=== PATIENT | female | born 1970 | race Caucasian/White ===

== ENCOUNTER 2019-01-12 15:40 | Inpatient (IN) ==
[2019-01-12 19:43] LABS: Basophils # 0.1 K/mcL (0.0-0.2); Basophils % 0.4 %; Eosinophils # 0.1 K/mcL (0.0-0.6); Eosinophils % 0.5 %; Hematocrit 36.8 % (35.3-44.9); Hemoglobin 11.4 g/dL (11.5-15.4); Lymphocytes # 1.4 K/mcL (0.6-4.6); Lymphocytes % 11.1 %; Mean Corpuscular Hemoglobin 27.1 pg (28.0-33.3); Mean Corpuscular Volume 87.4 fL (83.0-100.0); Mean Platelet Volume 10.6 fL (9.4-12.4); Monocytes # 1.1 K/mcL (0.0-1.3); Monocytes % 8.2 %; Neutrophils # 10.3 K/mcL (1.6-8.9); Platelet Count 308 K/mcL (140-400); Red Blood Count 4.21 M/mcL (3.82-4.97); Red Cell Distribution Width 14.2 % (11.5-14.5); Segmented Neutrophils % 78.8 %
[2019-01-12 20:02] LABS: BUN/Creatinine Ratio 25 (6-26); Blood Urea Nitrogen 24 mg/dL (6-20); Calcium 8.6 mg/dL (8.6-10.3); Carbon Dioxide 28 mEq/L (23-29); Chloride 96 mEq/L (98-107); Glucose 323 mg/dL (70-105); Osmolality,Calculated 293 (280-300); Potassium 4.3 mEq/L (3.5-5.1); Sodium 133 mEq/L (136-145); eGFR For African Americans > 60 (> 60); eGFR For Non-African Americans > 60 (> 60)
[2019-01-12] MEDS: Insulin LISPRO 300 UNITS/3 ML VIAL SQ SCH (21:37)
[2019-01-12] MEDS ORDERED: Naloxone 0.4 MG/ML INJ IVP PRN (22:10)
[2019-01-12] MEDS ORDERED: Ondansetron 4 MG/2 ML VIAL IVP PRN (22:10)
[2019-01-12] MEDS ORDERED: traMADol 50 MG TABLET PO PRN (22:10)
[2019-01-12] MEDS ORDERED: 0.9 % Sodium Chloride 1,000 ML IVC SCH (22:15)
[2019-01-12] MEDS ORDERED: Vancomycin (wt based) 1,000 MG VIAL IVPB SCH (23:00)
--- NOTE | 2019-01-12 23:02 | Internal Med History&Physical ---
Date of Encounter: 01/12/19 Time of Encounter: 19:50 Internal Medicine - H&P: HPI Chief complaint: Transfer from [facility]; DFU/osteomyelitis Admitted From: Hospital to Hospital Transfer Plans for Post Hospital Care: Home History of present illness: Ms. Salter is a 48 year old female who was transferred to [place] from [facility] inpatient service. She was hospitalized the last few days with diabetic foot ulcer and cellulitis. Because of lack of improvement and concern for possible osteomyelitis, she was transferred for surgical intervention. She did have a bone scan there suggesting osteomyelitis. Despite antibiotics, she continued to have fevers and was transferred here for further care. Upon my assessment of the patient, patient is in no distress, but she is febrile. She does complain of pain in her foot. She does have ulcers in both feet, but her left foot appears to be red, swollen, and infected. Her right foot ulcer is open but does not appear to be acutely infected. She denies any chest pains, shortness of breath, cough, vomiting, or diarrhea. She denies any puncture wounds to her feet. She is diabetic and has neuropathy in her feet. 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 Unfortunately, she has not been very compliant with her diabetes care and/or foot care. Regarding her past medical history, patient has a known history of cardiomyopathy with EF of 20%. She does have an AICD/pacemaker in place. She follows with cardiology in [place], [place] and her PCP is in [place], [place]. Past Med Surg Social Fam HX - Past Medical History Attestation: Yes The following information was validated with the patient. Source: patient, old records reviewed, other (limited [facility] records) Medical history: cardiomyopathy, CHF, diabetes, GERD, hypertension Psychiatric history: anxiety - Past Surgical History Surgical History: appendectomy, , pacemaker/AICD Additional surgical history: Cardiac catherization. - Social History Smoking Status: Never smoker Smokeless Tobacco Status: No Alcohol use: none Drug use: none Current living situation: Home Activity Level: Independent ambulation Recent Out of Country Travel Within the Last 8 Weeks: No - Family History Mother Adopted: No Family Member Ethnicity: Non- Living Status: Hx Family Cardiac Disorders: Yes (htn) Hx Family Respiratory Disorders: No Hx Family Cancer: No Hx Family GI Disorders: No Hx Family Endocrine Disorder: No Hx Family Neuromuscular Disorders: No Hx Family Neurologic Disorders: No Hx Family HEENT Disorders: No Hx Family Autoimmune Disorders: No Internal Medicine - H&P: Meds Allopurinol [Zyloprim 100 MG] 100 mg PO BID 02/25/15 [History] Aspirin 325 mg PO DAILY 02/25/15 [History] Furosemide [Lasix] 75 mg PO BID 02/25/15 [History] Gabapentin [Neurontin] 400 mg PO TID 02/25/15 [History] Lisinopril [Zestril] 40 mg PO DAILY 02/25/15 [History] Metoprolol [Lopressor] 100 mg PO BID 02/25/15 [History] Buspirone HCl [Buspar] 10 mg PO TID 01/12/19 [History] Dulaglutide [Trulicity] 1.5 mg SQ Q1W 01/12/19 [History] Insulin Degludec [Tresiba] 140 units SQ HS 01/12/19 [History] Insulin LISPRO [HumaLOG] 10 units SQ TIDWM 01/12/19 [History] Omeprazole [PriLOSEC] 40 mg PO DAILY 01/12/19 [History] Ondansetron ODT [Zofran ODT] 4 mg SL Q6HR 01/12/19 [History] glipiZIDE [Glipizide] 10 mg PO DAILY 01/12/19 [History] Allergy/AdvReac Type Severity Reaction Status Date / Time codeine Allergy Hives Verified 12/16/15 16:11 - Constitutional Constitutional: fever(s), no chills, no night sweats - EENT Eyes: no blurry vision, no change in vision Ears: no ear pain, no tinnitus Nose, mouth and throat: no nasal congestion, no sinus pressure, no sore throat - Cardiovascular Cardiovascular ROS IM: no chest pain, no dyspnea, no dyspnea on exertion, no orthopnea, no paroxysmal nocturnal dyspnea - Respiratory Respiratory: no cough, no chest congestion, no excessive phlegm production, no change in phlegm color - Gastrointestinal Gastrointestinal: no abdominal pain, no diarrhea, no hematemesis, no hematochezia, no melena, no nausea, no vomiting - Genitourinary Genitourinary: no dysuria, no flank pain, no hematuria - Musculoskeletal Musculoskeletal ROS IM: arthralgias, no back pain - Integumentary Integumentary IM: non-healing lesions (both feet with ulcers), no rash, no jaundice - Neurological Neurological ROS: no dizziness, no focal weakness, no frequent falls, no h eadache(s) - Psychiatric Psychiatric: no anxiety, no depression - Endocrine Endocrine IM: polydipsia, polyuria, no cold intolerance, no heat intolerance, no polyphagia - Allergic/Immunologic Allergic/Immunologic: no GI upset with certain foods - Constitutional Vitals: Temp Pulse Resp BP Pulse Ox 101.6 F H 108 14 118/67 97 01/12/19 20:55 01/12/19 20:55 01/12/19 20:55 01/12/19 20:55 01/12/19 20:55 General appearance: Present: cooperative, mild distress, A&O X 3, pleasant, answers questions appropriately Exam: see below - Head Head exam: Present: atraumatic, normal inspection - Eye Eye exam: Present: EOMI, PERRL. Absent: scleral icterus Pupils: Present: normal accommodation - ENT ENT exam: Present: mucous membranes moist, normal exam, normal oropharynx - Neck Neck exam general surgery: Present: full ROM, supple, trachea midline. Absent: lymphadenopathy, tenderness, nuchal rigidity, thyromegaly - Respiratory Respiratory exam: Present: CTAB. Absent: chest wall tenderness, rales, respiratory distress, rhonchi, wheezes, tachypnea - Cardiovascular Cardiovascular exam: Present: distant heart sounds, RRR, +S1, +S2. Absent: diastolic murmur, systolic murmur - GI/Abdominal GI/Abdominal exam: Present: normal bowel sounds, soft. Absent: guarding, hepatomegaly, mass, rebound, splenomegaly, tenderness - Extremities Exam Extremities exam: Present: full ROM, normal capillary refill, warm, radial pulses palpable and symmetrical. Absent: calf tenderness, pedal edema Additional comments: both feet with ulcers; left foot ulcer infected with surrounding redness, edema, warmth, and pain - Back Exam Back exam: Absent: CVA tenderness (L), CVA tenderness (R) - Neurological Exam Neurological exam: Present: alert, CN II-XII intact, oriented X3, strengths equal and symetr throughout Additional comments: decreased sensation in both feet - Psychiatric Psychiatric exam: Present: normal affect, normal mood - Skin Skin exam: Present: dry, intact, warm Internal Med - H&P Results - Labs CBC & Chem 7: 01/12/19 19:28 01/12/19 19:28 Labs: Short CBC 01/12/19 Range/Units 19:28 WBC 13.0 H (4.3-11.1) K/mcL Hgb 11.4 L (11.5-15.4) g/dL Hct 36.8 (35.3-44.9) % Plt Count 308 (140-400) K/mcL Neutrophils # 10.3 H (1.6-8.9) K/mcL BMP 01/12/19 19:28 Sodium 133 L Potassium 4.3 Chloride 96 L Carbon Dioxide 28 BUN 24 H Creatinine 0.97 Glucose 323 H Calcium 8.6 - Assessment and Plan (1) SIRS (systemic inflammatory response syndrome) Current Visit: Yes Status: Acute Assessment and plan: 1. Blood cultures obtained. 2. Will trend lactate levels and monitor on hemodynamics. 3. Will cover with Vancomycin and Zosyn for suspected foot organisms. 4. Avoid IVF bolus at this time as I do not suspect she is septic and also that she has compromised cardiac function with EF 20%. If she develops sepsis, rising lactates, and compromised hemodynamics, then IVF bolus will be indicated. (2) Diabetic foot infection Current Visit: Yes Status: Acute Assessment and plan: 1. Will order CT foot; unable to perform MRI due to pacemaker. 2. Consult podiatry -- discussed with Dr. Hamilton. 3. Will also likely need ID consult as I suspect she has osteomyelitis. (3) IDDM (insulin dependent diabetes mellitus) Current Visit: Yes Status: Chronic Assessment and plan: 1. Hold oral home meds. 2. Will place on SSI and monitor glucose closely. 3. She will likely need basal insulin once no longer NPO. (4) Non-ischemic cardiomyopathy Current Visit: Yes Status: Chronic Assessment and plan: 1. Will monitor on telemetry. 2. ECHO ordered. (5) DVT prophylaxis Current Visit: Yes Status: Acute Assessment and plan: 1. Heparin SQ.
[2019-01-13] MEDS: Piperacillin/Tazobactam 3.375 GM in 0.9 % Sodium Chloride Mini Bag 100 ML IVPB SCH ×3 (00:04→18:47)
[2019-01-13] MEDS: Acetaminophen 325 MG TABLET PO PRN ×2 (00:05→21:13)
[2019-01-13 02:25] LABS: Basophils # 0.1 K/mcL (0.0-0.2); Basophils % 0.4 %; Eosinophils # 0.1 K/mcL (0.0-0.6); Eosinophils % 0.5 %; Hematocrit 33.3 % (35.3-44.9); Hemoglobin 10.3 g/dL (11.5-15.4); Immature Granulocytes % 1.1 % (0-4); Lymphocytes # 1.4 K/mcL (0.6-4.6); Lymphocytes % 10.9 %; Mean Corpuscular HGB Conc 30.9 g/dL (31.6-35.5); Mean Corpuscular Hemoglobin 27.1 pg (28.0-33.3); Mean Corpuscular Volume 87.6 fL (83.0-100.0); Mean Platelet Volume 10.5 fL (9.4-12.4); Monocytes # 1.3 K/mcL (0.0-1.3); Monocytes % 9.8 %; Neutrophils # 9.9 K/mcL (1.6-8.9); Platelet Count 288 K/mcL (140-400); Red Cell Distribution Width 14.1 % (11.5-14.5); Segmented Neutrophils % 77.3 %; White Blood Count 12.8 K/mcL (4.3-11.1)
[2019-01-13 02:35] LABS: INR 1.2; Prothrombin Time 13.2 Seconds (9.4-12.1)
[2019-01-13 02:38] LABS: Activated Partial Thrombo Time 27.7 Seconds (26.0-36.0)
[2019-01-13 02:51] LABS: Alanine Aminotransferase 8 Units/L (7-52); Albumin/Globulin Ratio 0.9 (1.1-2.2); Alkaline Phosphatase 55 Units/L (34-104); Aspartate Amino Transferase 7 Units/L (13-39); BUN/Creatinine Ratio 23 (6-26); Bilirubin,Total 0.5 mg/dL (0.3-1.0); Blood Urea Nitrogen 20 mg/dL (6-20); Carbon Dioxide 26 mEq/L (23-29); Chloride 97 mEq/L (98-107); Globulin 3.4 g/dL (2.4-3.5); Glucose 267 mg/dL (70-105); Magnesium 2.1 mg/dL (1.6-2.6); Osmolality,Calculated 284 (280-300); Potassium 3.7 mEq/L (3.5-5.1); Sodium 131 mEq/L (136-145); Total Protein 6.4 g/dL (6.4-8.9); eGFR For African Americans > 60 (> 60); eGFR For Non-African Americans > 60 (> 60)
[2019-01-13] MEDS: *HR* Heparin 5,000 UNIT/ML VIAL SQ SCH ×2 (06:03→12:35)
[2019-01-13] MEDS: Insulin LISPRO 300 UNITS/3 ML VIAL SQ SCH ×4 (09:00→21:14)
[2019-01-13] MEDS: Aspirin 325 MG TABLET PO SCH (10:00)
[2019-01-13] MEDS: Metoprolol 100 MG TABLET PO SCH ×2 (10:00→21:13)
[2019-01-13] MEDS: Gabapentin 400 MG CAPSULE PO SCH ×3 (10:00→21:13)
--- NOTE | 2019-01-13 10:02 | Podiatry Consult Note ---
Date of Encounter: 01/13/19 Time of Encounter: 10:00 Assessment and Plan (1) Diabetic foot infection Current visit: Yes Status: Acute Assssment: Mantilla stage II ulceration left foot Cellulitis Erythema and edema noted to periwound, left foot No lymphangitis noted, left foot CT left foot non suspicious for OM or abscess at this time Mantilla stage II ulceration right foot, appears stable WBC 12.8 Peak temp 100.1, no documented fever today 3/4 PT/DP bilaterally Plan: Bedside debridement completed. See below Wound cultures obtained- nursing to send to lab HGB A1C, ESR, CRP ordered Right foot xray ordered to evaluate ulceration/bone Continue IV ATB per ID recommendations- appreciate input No plan for surgical intervention at this time. Will continue to evaluate. Diabetic diet ordered Cleansed with 0.9 NS. Informed consent obtained timeout performed. Patient placed in recumbent position. Left foot and ankle prepped and draped usual manner. Under sterile technique and using sterile instrumentation surgical excisional wound debridement was carried out with #15 scalpel blade to remove all devitalized tissue of the plantar forefoot wound/1st submetatarsal right foot. Bleeding controlled with dressing. Debridement was carried down to the subcutaneous tissue. Covered with calcium alginate, 4x4 dry gauze, kerlix, and medipore tape. Wound measurements 1.5 x 1 x 1 cm Attention was then directed to left foot Cleansed with 0.9 NS. Informed consent obtained timeout performed. Patient placed in recumbent position. Left foot and ankle prepped and draped usual manner. Under sterile technique and using sterile instrumentation sharp surgical excisional wound debridement was carried out with #15 scalpel blade, pickup, and scissor to remove all devitalized tissue of the plantar forefoot wound/1st submetatarsal left foot. Wound cultures were obtained. Bleeding controlled with dressing. Debridement was carried down to the subcutaneous tissue. Painted all macerated tissue with betadine. Covered wound bed with calcium alginate, 4x4 dry gauze, kerlix, and medipore tape. 5 x 9.3 x 0.2 cm History of Present Illness Chief complaint: diabetic foot ulcers HPI: Ms. Salter is a 48 year old female who presented to the ER yesterday from [facility] for worsening diabetic foot ulcers. Patient is unknown to the podiatry clinic follows outpatient in [place] for care. PMH of cardiomyopathy, EF 20%, CHF, DM II, GERD, HTN, anxiety, appendectomy, and pacemaker/AICD. Denies any tobacco abuse, illicit drug abuse, or alcohol abuse. Briefly, patient reports calluses to bilateral first submetatarsal that began in October. Patient states she began to have pain about a week ago to left foot with increased erythema and edema. Reports going to [facility] where they have been giving her IV antibiotics. Patient states due to lack of healing she felt she needed transferred for more intensive care. Again Ms. Salter is a 48-year-old female who is consulted to podiatry for management of diabetic foot ulcers. CT upon admission was negative for any osteomyelitis or abscess of left lower extremity. Right foot appears stable, does not appear infectious, no imaging was completed. WBC 12.8. Reports fevers and chills. Denies any nausea, vomiting, or diarrhea. Denies any calf pain, chest pain, or shortness of breath. Discussed bedside debridement of bilateral foot ulcers with patient. Patient agreeable. Past Med Surg Social Fam HX - Past Medical History Medical history: cardiomyopathy, CHF, diabetes, GERD, hypertension Psychiatric history: anxiety - Past Surgical History Surgical History: appendectomy, , pacemaker/AICD Additional surgical history: Cardiac catherization. - Social History Smoking Status: Never smoker Smokeless Tobacco Status: No Alcohol use: none Drug use: none - Family History Mother Adopted: No Family Member Ethnicity: Non- Living Status: Hx Family Cardiac Disorders: Yes (htn) Hx Family Respiratory Disorders: No Hx Family Cancer: No Hx Family GI Disorders: No Hx Family Endocrine Disorder: No Hx Family Neuromuscular Disorders: No Hx Family Neurologic Disorders: No Hx Family HEENT Disorders: No Hx Family Autoimmune Disorders: No Medications and Allergies Allopurinol [Zyloprim 100 MG] 100 mg PO BID 02/25/15 [History] Aspirin 325 mg PO DAILY 02/25/15 [History] Furosemide [Lasix] 75 mg PO BID 02/25/15 [History] Gabapentin [Neurontin] 400 mg PO TID 02/25/15 [History] Lisinopril [Zestril] 40 mg PO DAILY 02/25/15 [History] Metoprolol [Lopressor] 100 mg PO BID 02/25/15 [History] Buspirone HCl [Buspar] 10 mg PO TID 01/12/19 [History] Dulaglutide [Trulicity] 1.5 mg SQ Q1W 01/12/19 [History] Insulin Degludec [Tresiba] 140 units SQ HS 01/12/19 [History] Insulin LISPRO [HumaLOG] 10 units SQ TIDWM 01/12/19 [History] Omeprazole [PriLOSEC] 40 mg PO DAILY 01/12/19 [History] Ondansetron ODT [Zofran ODT] 4 mg SL Q6HR 01/12/19 [History] glipiZIDE [Glipizide] 10 mg PO DAILY 01/12/19 [History] Allergy/AdvReac Type Severity Reaction Status Date / Time codeine Allergy Hives Verified 12/16/15 16:11 All Systems Reviewed: The remainder of the systems were reviewed and are negative - Constitutional Constitutional: fever(s) - Cardiovascular Cardiovascular: pedal edema, no chest pain, no dyspnea, no leg edema - Respiratory Respiratory: no cough, no dyspnea - Musculoskeletal Musculoskeletal: numbness, tingling Physical Exam - Constitutional Vitals: Temp Pulse Resp BP Pulse Ox 98.1 F 99 15 105/60 95 01/13/19 06:42 01/13/19 06:42 01/13/19 06:42 01/13/19 06:42 01/13/19 06:42 Results - Labs Result Diagrams: 01/13/19 02:06 01/13/19 02:07 Labs: Abnormal lab results WBC 12.8 K/mcL (4.3-11.1) H 01/13/19 02:06 RBC 3.80 M/mcL (3.82-4.97) L 01/13/19 02:06 Hgb 10.3 g/dL (11.5-15.4) L 01/13/19 02:06 Hct 33.3 % (35.3-44.9) L 01/13/19 02:06 MCH 27.1 pg (28.0-33.3) L 01/13/19 02:06 MCHC 30.9 g/dL (31.6-35.5) L 01/13/19 02:06 Neutrophils # 9.9 K/mcL (1.6-8.9) H 01/13/19 02:06 PT 13.2 Seconds (9.4-12.1) H 01/13/19 02:06 Sodium 131 mEq/L (136-145) L 01/13/19 02:07 Chloride 97 mEq/L (98-107) L 01/13/19 02:07 BUN 24 mg/dL (6-20) H 01/12/19 19:28 Glucose 267 mg/dL (70-105) H 01/13/19 02:07 POC Glucose 250 mg/dL (70-99) H 01/12/19 21:17 Calcium 8.0 mg/dL (8.6-10.3) L 01/13/19 02:07 AST 7 Units/L (13-39) L 01/13/19 02:07 Albumin 3.0 g/dL (3.5-5.7) L 01/13/19 02:07 Albumin/Globulin Ratio 0.9 (1.1-2.2) L 01/13/19 02:07 H & H 01/12/19 01/13/19 Range/Units 19:28 02:06 Hgb 11.4 L 10.3 L (11.5-15.4) g/dL Hct 36.8 33.3 L (35.3-44.9) % All other labs normal. - Diagnostic results Ankle/Foot CT: report reviewed Consult Discharge Plan - Plan Referrals: Lucy Araya, ALIRIO [Primary Care Provider] -
--- NOTE | 2019-01-13 11:39 | Infectious Disease Consult ---
Infectious Disease-Consult - Encounter Date/Time Date of Encounter: 01/13/19 Time of Encounter: 11:35 - Data of Consult Patient: new to practice Reason for consult: "diabetic foot ulcer, abx recommendation" Consult date: 01/13/19 Requesting Physician: Eagle Zhu Primary Care Provider: Lucy Araya CNP - HPI HPI: Ms. Salter is a 48 year old female with past medical history of cardiomyopathy status post pacer/AICD placement, diabetes, CHF, GERD, and hypertension. The patient was admitted to the hospital 01/12/19 for cellulitis and osteomyelitis. We are consulted 01/13/19 for further workup and treatment recommendations for diabetic foot ulcer and antibiotic recommendations. Briefly, the patient is a 48-year-old female with past medical history as stated above. The patient was originally admitted to [facility] on 01/09/19 after she presented to the emergency department with complaints of worsening diabetic foot ulcer and cellulitis. Upon arrival, she was febrile tachycardic. Her WBC was normal. Blood cultures were obtained and were no growth to date. Lactic acid and renal function were within normal limits. She had a wound culture that was obtained that was positive for Enterobacter cocci, K. pneumoniae, E. faecalis, and S. epi. She underwent a bone scan that revealed osteomyelitis of several of the tarsal bones. It is unclear what antibiotics she was on at [facility]. She failed to improve on IV antibiotics and she was transferred here for further evaluation and treatment. Since admission, the patient has had a Tmax 102.2. She has been tachycardic as well. Blood cultures drawn here on arrival are pending x 2 sets. Yesterday, her WBC went up to 13 with minimal improvement today. The patient has been evaluated by podiatry. Currently, the patient on vancomycin and Zosyn. We are asked to evaluate and make further recommendations. During my exam today, the patient states that she was recently off work for about 2 months from ulcers on her right foot for which she was being treated by her Ecologist Technician in [place]. She states she was on oral antibiotics and was doing wound care at home. She states she went back to work a couple of weeks before presentation and developed a blister over a previous callous that continued to worsen. She reports redness, pain, and swelling that had started to migrate up the leg. She denies drainage or foul odor. States she developed fevers and chills a couple of days ago. Denies chest pain, shortness of breath, or cough. Denies vomiting, diarrhea, or constipation. Reports some intermittent nausea, but states her appetite has been okay. Denies oral thrush or skin rashes. States her blood sugars run high a lot. The patient lives at home with her daughter. 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 She denies tobacco, alcohol, or illicit drug use. Denies chronic infectious diseases. Has a dog at home, but denies any bites or scratches. - ROS Review of Systems: All systems reviewed and no additional remarkable complaints except as stated. - Results CBC & Chem 7: 01/13/19 02:06 01/13/19 02:07 - Exam Vitals: Temp Pulse Resp BP Pulse Ox 98.1 F 110 15 149/87 97 01/13/19 10:07 01/13/19 10:07 01/13/19 10:07 01/13/19 10:07 01/13/19 10:07 Exam: Head: Atraumatic, normal inspection, normocephalic. Eye: EOMI, PERRLA, no scleral icterus noted. ENT: Mucous membranes moist. No odontogenic infection noted. Neck: Normal inspection, no meningismus. Respiratory: Clear to auscultation. No rales, respiratory distress, rhonchi, or wheezes noted. Cardiovascular: Regular rate and rhythm, S1 and S2 audible. No murmurs, rubs, or gallops. GI: Soft, obese, normal bowel sounds. Non-tender Extremities:No joint swelling, pedal edema, or tenderness noted. BLE dressings C/D/I. Back: Normal inspection. No vertebral tenderness noted. Neurological: Alert, oriented 3, no focal deficits. Psychiatric: normal affect, normal mood. Skin: Dry, intact, warm. Normal color. No rashes. Allopurinol [Zyloprim 100 MG] 100 mg PO BID 02/25/15 [History] Aspirin 325 mg PO DAILY 02/25/15 [History] Furosemide [Lasix] 80 mg PO BID 02/25/15 [History] Gabapentin [Neurontin] 400 mg PO TID 02/25/15 [History] Lisinopril [Zestril] 40 mg PO DAILY 02/25/15 [History] Metoprolol [Lopressor] 100 mg PO BID 02/25/15 [History] Buspirone HCl [Buspar] 10 mg PO TID 01/12/19 [History] Dulaglutide [Trulicity] 1.5 mg SUBTEN Q1W 01/12/19 [History] Insulin Degludec [Tresiba] 140 units SQ HS 01/12/19 [History] Insulin LISPRO [HumaLOG] 10 units SQ TIDWM 01/12/19 [History] Omeprazole [PriLOSEC] 40 mg PO DAILY 01/12/19 [History] Ondansetron ODT [Zofran ODT] 4 mg SL Q6HR PRN 01/12/19 [History] glipiZIDE [Glipizide] 10 mg PO DAILY 01/12/19 [History] Allergy/AdvReac Type Severity Reaction Status Date / Time codeine Allergy Hives Verified 01/13/19 21:14 - Assessment and Plan (1) Sepsis Current Visit: Yes Status: Acute The patient had three SIRS criteria. Likely secondary to left foot infection. WBC remains elevated. Tachycardia persists. Tmax 102.2 overnight. Blood cultures drawn 01/09/19 are NGTD x 2 sets. Repeat blood cultures drawn 01/12/19 are pending x 2 sets. Qualifiers: Sepsis type: sepsis due to unspecified organism Qualified Code(s): A41.9 - Sepsis, unspecified organism SNOMED Code(s): 10106568 (2) Osteomyelitis Current Visit: Yes Status: Acute Suspected. Location: Tarsal bones left foot. Causative organism: E. cloacae, K. pneumoniae, amp-sensitive E. faecalis, and S. epi Bone scan completed at [facility] showed possible OM of several tarsal bones. Podiatry consulted. XR, ESR, and CRP pending. Currently on Vanc and Zosyn. Qualifiers: Osteomyelitis type: acute hematogenous SNOMED Code(s): 81977440 (3) Diabetic foot infection Current Visit: Yes Status: Acute Location: Left foot. Causative organism: E. cloacae, K. pneumoniae, S. epi and E. faecalis. Likely secondary to chronic diabetic foot ulcer. Bone scan concerning for OM. Podiatry consulted. Further workup pending. Currently on Vanc and Zosyn. SNOMED Code(s): 418802112 (4) Non-ischemic cardiomyopathy Current Visit: Yes Status: Chronic Status post pacer/AICD. Follows with cardiology at OSH. SNOMED Code(s): 95027478 (5) Diabetes Current Visit: No Status: Chronic Check HgbA1C. Recommend aggressive glucose monitoring and control to promote wound healing and prevent re-infection. Management per the primary team. 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 Diabetes mellitus complication status: without complication Qualified Code(s): E11.9 - Type 2 diabetes mellitus without complications SNOMED Code(s): 32426882 (6) HLD (hyperlipidemia) Current Visit: No Status: Chronic SNOMED Code(s): 59875430 (7) HTN (hypertension) Current Visit: No Status: Chronic Qualifiers: Hypertension type: essential hypertension Qualified Code(s): I10 - Essent ial (primary) hypertension SNOMED Code(s): 35243792 (8) ICD (implantable cardioverter-defibrillator) in place Current Visit: No Status: Chronic SNOMED Code(s): 273988810 (9) Obesity Current Visit: No Status: Chronic Qualifiers: Obesity type: unspecified obesity type SNOMED Code(s): 274634122, 856535935 - Recommendations Recommendations: Await blood cultures to finalize. Check ESR, CRP. Await XR results. Diabetes management per the primary team. Wound care and activity and possible further surgical intervention per the Podiatry team. Continue Vancomycin IV. Pharmacy to dose. Goal trough ~15. Continue Zosyn 3.375 grams IV Q8H. Will plan to de-escalate antibiotics once we have further recommendations from the Podiatry team. Duration of treatment depends on the clinical picture. Monitor renal function and for drug toxicity and dose-adjust antibiotics. Past Med Surg Social Fam HX - Past Medical History Medical history: cardiomyopathy, CHF, diabetes, GERD, hypertension Psychiatric history: anxiety - Past Surgical History Surgical History: appendectomy, , pacemaker/AICD Additional surgical history: Cardiac catherization. - Social History Smoking Status: Never smoker Smokeless Tobacco Status: No Alcohol use: none Drug use: none - Family History Mother Adopted: No Family Member Ethnicity: Non- Living Status: Hx Family Cardiac Disorders: Yes (htn) Hx Family Respiratory Disorders: No Hx Family Cancer: No Hx Family GI Disorders: No Hx Family Endocrine Disorder: No Hx Family Neuromuscular Disorders: No Hx Family Neurologic Disorders: No Hx Family HEENT Disorders: No Hx Family Autoimmune Disorders: No Consult Discharge Plan - Plan Referrals: Lucy Araya CNP [Primary Care Provider] - - Attending Attestation I have personally performed a face to face evaluation on this patient. I have reviewed and agree with the care plan. History and Exam by me shows: This an addendum to original report dictated by Melissa Daniels CNP, please refer to Melissa's note for full details. Agree with above H&P, ROS and PE findings. Assessment and plan: 1. Sepsis 2. Osteomyelitis Left foot tarsal bone 3. DM2 poorly controlled 4. Morbid obesity 5. Diabetic foot ulcer Recommendations: Await blood cultures to finalize. Check ESR, CRP. Await XR results. Diabetes management per the primary team. Wound care and activity and possible further surgical intervention per the Podiatry team. Continue Vancomycin IV. Pharmacy to dose. Goal trough ~15. Continue Zosyn 3.375 grams IV Q8H. Will plan to de-escalate antibiotics once we have further recommendations from the Podiatry team. Duration of treatment depends on the clinical picture. Monitor renal function and for drug toxicity and dose-adjust antibiotics.
[2019-01-13 13:31] LABS: C-Reactive Protein 266 mg/L (Less than 10)
--- NOTE | 2019-01-13 14:10 | Electrocardiograph Report ---
[address] [address] Test Date: 2019-01-12 Pat Name: Rosita Salter Department: 115 Room: 3A Gender: F College Counselor: : 1970 Requested By: Earl Doty Order Number: [id number] Reading MD: Dank Russell Measurements Intervals Clever Rate: 113 P: 50 [place]: 188 QRS: -2 QRSD: 107 T: 78 QT: 340 QTc: 407 Interpretive Statements SINUS TACHYCARDIA Poor R wave progression Electronically Signed On 01-13-2019 14:08:23 EDT by Dank Russell
[2019-01-13 15:07] LABS: Estimated Average Glucose 338 mg/dl
[2019-01-13] MEDS ORDERED: Perflutren Lipid Microsphere 1.3 ML in 0.9 % Sodium Chloride 8.7 ML IVP ONE (15:09)
--- NOTE | 2019-01-13 19:13 | Internal Med Progress Note ---
Hospitalist Progress Note - Encounter Date of Encounter: 01/13/19 Time of Encounter: 09:00 - Subjective Interval History: Patient was seen this a.m. She had a temperature overnight yesterday. She denied fever or chills or night sweats at this morning. Her foot pain is under control. She had no nausea/vomiting or abdominal pain. - Exam Vitals: Temp Pulse Resp BP Pulse Ox 98.2 F 95 15 96/61 95 01/13/19 14:32 01/13/19 14:32 01/13/19 14:32 01/13/19 14:32 01/13/19 14:32 Exam: General: Patient is alert, oriented 3. Head: Atraumatic, normal inspection, normocephalic. Eye: EOMI, PERRLA, no scleral icterus noted. ENT: Mucous membranes moist. No odontogenic infection noted. Neck: Normal inspection, no meningismus. Respiratory: No respiratory distress, rhonchi, or wheezes noted. Cardiovascular: Regular rate and irregular rhythm, S1 and S2 audible. No . GI: Soft, nondistended, normal bowel sounds. Extremities: Bilateral lower extremity dressing, decreased sensation in the toes. Neurological: Alert, oriented 3, no focal deficits. Psychiatric: normal affect, normal mood. Skin: Dry, intact, warm. Normal color. No rashes. - Assessment and Plan (1) Non-ischemic cardiomyopathy Current Visit: Yes Status: Chronic (2) SIRS (systemic inflammatory response syndrome) Current Visit: Yes Status: Acute (3) Diabetic foot infection Current Visit: Yes Status: Acute (4) IDDM (insulin dependent diabetes mellitus) Current Visit: Yes Status: Chronic (5) DVT prophylaxis Current Visit: Yes Status: Acute - Summary of Assessment and Plan Summary of Assessment and Plan: Ms. Salter is a 48 year old female who was transferred to [place] from [facility] inpatient service. She was hospitalized the last few days with diabetic foot ulcer and cellulitis. Because of lack of improvement and concern for possible osteomyelitis, she was transferred for surgical intervention. She did have a bone scan there suggesting osteomyelitis. Despite antibiotics, she continued to have fevers and was transferred here for further care. Sepsis: - Meets 3/4 criteria - Bilateral lower extremity ulcers: - Pediatry consulted, had bedside I&D - ESR, CRP are pending. Foot x-ray with no evidence of ostial myelitis, first MTP joint soft tissue ulceration with soft tissue swelling suggesting cellulitis. CT food without signs of OM. Unable to do MRI due to AICD. - Blood cultures and wound cultures are pending. - Patient is hemodynamically stable, and afebrile today. - Infectious disease is consulted, continue Zosyn and vancomycin. - Continue gabapentin for neuropathy HFrEF S/P aicd: - EF 20/25%, mild MR, mild TR. - Patient looks euvolemic. -On Lasix 75 mg twice a day, continue to hold. - Continue beta blockers. Hyponatremia: - Likely secondary to dehydration and hyperglycemia. - Given her low EF, we continued to monitor without IV fluid administration. - Check BMP tomorrow IDDM with hyperglycemia: - Will not receive a 140 units at night, glipizide and 10 units of lispro 3 times a day. - Continue Accu-Cheks 3 times a day before meals, medium sliding scale insulin and Levemir 50 units at bedtime. DVT: Heparin SCC - Time Spent with Patient Total time spent is greater than 50% in coordination of care (as documented) at patient's floor/unit and/or counseling patient: Greater than 35 minutes Plan of Care Discussed with: patient Internal Medicine: Result - Labs CBC & Chem 7: 01/13/19 02:06 01/13/19 02:07 Labs: Short CBC 01/12/19 01/13/19 Range/Units 19:28 02:06 WBC 13.0 H 12.8 H (4.3-11.1) K/mcL Hgb 11.4 L 10.3 L (11.5-15.4) g/dL Hct 36.8 33.3 L (35.3-44.9) % Plt Count 308 288 (140-400) K/mcL Neutrophils # 10.3 H 9.9 H (1.6-8.9) K/mcL BMP 01/12/19 01/13/19 19:28 02:07 Sodium 133 L 131 L Potassium 4.3 3.7 Chloride 96 L 97 L Carbon Dioxide 28 26 BUN 24 H 20 Creatinine 0.97 0.87 Glucose 323 H 267 H Calcium 8.6 8.0 L Liver Function 01/13/19 Range/Units 02:07 Total Bilirubin 0.5 (0.3-1.0) mg/dL AST 7 L (13-39) Units/L ALT 8 (7-52) Units/L Alkaline Phosphatase 55 (34-104) Units/L Albumin 3.0 L (3.5-5.7) g/dL - ABG Interpretation ABG results: PT/INR, D-dimer PT 13.2 Seconds (9.4-12.1) H 01/13/19 02:06 - Impressions Impressions Echocardiogram 01/12/19 22:17 Impressions: LVEF 20-25%. Mildly dilated left ventricle. Indeterminate diastolic function. Atypical septal motion consistent with bundle branch block. Normal right ventricular structure and function. Mild mitral regurgitation. Mild tricuspid regurgitation. Mild-moderate pulmonary hypertension. A device lead was visualized in the right atrium and right ventricle. Left Ventricular Wall Motion: Rest Echo Findings The apex, apical inferior, mid inferior, basal inferior, apical anterior, mid anterior, basal anterior, apical septal, mid inferior septal, basal inferior septal, apical lateral, mid anterior lateral, basal anterior lateral, mid anterior septal, mid inferior lateral, basal anterior septal and basal inferior lateral vale were hypokinetic. Findings: Study Quality * Technically adequate exam. ECG Findings * Sinus rhythm with BBB. Left Ventricle * LVEF 20-25%. * Mildly dilated left ventricle. * Indeterminate diastolic function. * Atypical septal motion consistent with bundle branch block. Right Ventricle * Normal right ventricular structure and function. Left Atrium * Severely dilated left atrium. Right Atrium * Moderately dilated right atrium. Interatrial Septum * Interatrial septum not well evaluated. Aortic Valve * Aortic valve not well visualized. * No aortic regurgitation. * No aortic stenosis. Mitral Valve * Normal mitral valve structure. * Mild mitral regurgitation. * No mitral stenosis. Tricuspid Valve * Normal tricuspid valve structure. * Mild tricuspid regurgitation. * Mild-moderate pulmonary hypertension. Pulmonic Valve * Normal pulmonic valve structure and function. * Trace pulmonic regurgitation. Aorta * Normally sized aortic root. Pericardium * There is a trivial pericardial effusion present. IVC * The IVC is not well evaluated. Pulmonary Artery * Pulmonary artery not well visualized. Device lead * A device lead was visualized in the right atrium and right ventricle. Foot CT 01/12/19 22:17 IMPRESSION: 1. Shallow soft tissue ulceration plantar to the 1st MTP joint with underlying cellulitis. No definite well-defined drainable fluid collection. 2. No CT evidence of osteomyelitis or other acute osseous abnormality. D/ / Nazario Villegas MD / Nazario Villegas MD Interpreting Provider: Nazario Villegas MD Foot X-Ray 01/13/19 09:59 IMPRESSION: Soft tissue ulceration along the plantar aspect of the foot at the level of the 1st MTP joint with associated soft tissue swelling suggesting cellulitis. No soft tissue gas. No radiographic evidence of osteomyelitis. D/ / 01/13/2019 13:15:04 Tai Taylor MD / umang Interpreting Provider: Tai Taylor MD Consult Discharge Plan - Plan Referrals: Lucy Araya CNP [Primary Care Provider] -
[2019-01-14] MEDS: *HR* Heparin 5,000 UNIT/ML VIAL SQ SCH ×3 (00:07→17:31)
[2019-01-14] MEDS: Insulin DETEMIR 100 UNIT/ML X5UNITS SQ SCH ×2 (00:10→20:49)
[2019-01-14] MEDS: Piperacillin/Tazobactam 3.375 GM in 0.9 % Sodium Chloride Mini Bag 100 ML IVPB SCH ×4 (00:12→23:40)
[2019-01-14] MEDS: Insulin LISPRO 300 UNITS/3 ML VIAL SQ SCH ×4 (08:20→20:49)
[2019-01-14] MEDS: Gabapentin 400 MG CAPSULE PO SCH ×3 (08:33→19:50)
[2019-01-14] MEDS: Aspirin 325 MG TABLET PO SCH (08:33)
[2019-01-14] MEDS: Metoprolol 100 MG TABLET PO SCH ×2 (08:33→19:49)
[2019-01-14] MEDS: Gentamicin Oint 15 GM TUBE TP SCH (08:34)
[2019-01-14 09:05] LABS: Basophils # 0.1 K/mcL (0.0-0.2); Basophils % 0.5 %; Eosinophils # 0.3 K/mcL (0.0-0.6); Eosinophils % 2.8 %; Hematocrit 34.2 % (35.3-44.9); Hemoglobin 10.7 g/dL (11.5-15.4); Immature Granulocytes % 1.6 % (0-4); Lymphocytes % 18.7 %; Mean Corpuscular HGB Conc 31.3 g/dL (31.6-35.5); Mean Corpuscular Hemoglobin 27.8 pg (28.0-33.3); Mean Corpuscular Volume 88.8 fL (83.0-100.0); Mean Platelet Volume 10.1 fL (9.4-12.4); Monocytes # 0.9 K/mcL (0.0-1.3); Monocytes % 8.6 %; Neutrophils # 7.1 K/mcL (1.6-8.9); Platelet Count 331 K/mcL (140-400); Red Blood Count 3.85 M/mcL (3.82-4.97); Red Cell Distribution Width 14.2 % (11.5-14.5); Segmented Neutrophils % 67.8 %; White Blood Count 10.4 K/mcL (4.3-11.1)
[2019-01-14 09:16] LABS: BUN/Creatinine Ratio 19 (6-26); Blood Urea Nitrogen 14 mg/dL (6-20); Calcium 8.7 mg/dL (8.6-10.3); Carbon Dioxide 28 mEq/L (23-29); Chloride 101 mEq/L (98-107); Glucose 123 mg/dL (70-105); Osmolality,Calculated 284 (280-300); Potassium 3.9 mEq/L (3.5-5.1); Sodium 136 mEq/L (136-145); eGFR For African Americans > 60 (> 60); eGFR For Non-African Americans > 60 (> 60)
--- NOTE | 2019-01-14 14:59 | Internal Med Progress Note ---
Hospitalist Progress Note - Encounter Date of Encounter: 01/14/19 Time of Encounter: 11:00 - Subjective Interval History: No major events overnight. Patient denied fever, chills or night sweats. She has no nausea/vomiting or abdominal pain. She denied chest pain, palpitation or shortness of breath. - Exam Vitals: Temp Pulse Resp BP Pulse Ox 98.4 F 87 18 112/75 95 01/14/19 11:01 01/14/19 11:01 01/14/19 11:01 01/14/19 11:01 01/14/19 11:01 Exam: General: Patient is alert, oriented 3. Head: Atraumatic, normal inspection, normocephalic. Eye: EOMI, PERRLA, no scleral icterus noted. ENT: Mucous membranes moist. No odontogenic infection noted. Neck: Normal inspection, no meningismus. Respiratory: No respiratory distress, rhonchi, or wheezes noted. Cardiovascular: Regular rate and regular rhythm, S1 and S2 audible. No .GI: Soft, nondistended, normal bowel sounds. Extremities: Bilateral lower extremity dressing, decreased sensation in the toes. Neurological: Alert, oriented 3, no focal deficits. Psychiatric: normal affect, normal mood. Skin: Dry, intact, warm. Normal color. No rashes. - Assessment and Plan (1) Diabetic foot infection Current Visit: Yes Status: Acute (2) SIRS (systemic inflammatory response syndrome) Current Visit: Yes Status: Acute (3) Non-ischemic cardiomyopathy Current Visit: Yes Status: Chronic (4) IDDM (insulin dependent diabetes mellitus) Current Visit: Yes Status: Chronic (5) DVT prophylaxis Current Visit: Yes Status: Acute - Summary of Assessment and Plan Summary of Assessment and Plan: Ms. Salter is a 48 year old with a history of IDDM, neuropathy, NICM with EF of 20% who was transferred to [place] from [facility] inpatient service. She was hospitalized the last few days with diabetic foot ulcer and cellulitis. Because of lack of improvement and concern for possible osteomyelitis, she was transferred for surgical intervention. She did have a bone scan there suggesting osteomyelitis. Despite antibiotics, she continued to have fevers and was transferred here for further care. -Bilateral lower extremity ulcers: - s/p bedside I&D by podiatry. ESR is 90, CRP is 266. - Foot x-ray with no evidence of ostial myelitis, first MTP joint soft tissue ulceration with soft tissue swelling suggesting cellulitis. CT food without signs of OM. Unable to do MRI due to AICD. - Patient is afebrile, hemodynamically stable, leukocytosis resolved. - Left foot wound culture is growing GNR pending final results. - Infectious disease is consulted, continue Zosyn and renally dosed vancomycin day 2. - Continue gabapentin for neuropathy Sepsis: - Meets 3/4 criteria at presentation. - management as above. HFrEF S/P AICD: - EF 20/25%, mild MR, mild TR. - On Lasix 75 mg twice a day, continue to hold. Clinically euvolemic - Continue beta blockers. Hyponatremia: - Likely secondary to dehydration and hyperglycemia. - Given her low EF, we continued to monitor without IV fluid administration. - Check BMP tomorrow IDDM with hyperglycemia: - Will not receive a 140 units at night, glipizide and 10 units of lispro 3 times a day. - Continue Accu-Cheks 3 times a day before meals, medium sliding scale insulin and Levemir 50 units at bedtime. DVT: Heparin SCC BMAT +4. Disposition: continue inpatient. I reviewed independently all laboratory workup, pertinent images including x- rays and CT scans. I also reviewed independently and EKGs and my findings are in the body of my assessment and plan. I ordered the laboratory workup and images myself. I discussed finding with patient's, their families, RN's and consultants involved in the care of the patient. - Time Spent with Patient Total time spent is greater than 50% in coordination of care (as documented) at patient's floor/unit and/or counseling patient: Greater than 35 minutes Plan of Care Discussed with: patient Internal Medicine: Result - Labs CBC & Chem 7: 01/14/19 08:45 01/14/19 08:45 Labs: Short CBC 01/14/19 Range/Units 08:45 WBC 10.4 (4.3-11.1) K/mcL Hgb 10.7 L (11.5-15.4) g/dL Hct 34.2 L (35.3-44.9) % Plt Count 331 (140-400) K/mcL Neutrophils # 7.1 (1.6-8.9) K/mcL BMP 01/14/19 08:45 Sodium 136 Potassium 3.9 Chloride 101 Carbon Dioxide 28 BUN 14 Creatinine 0.73 Glucose 123 H Calcium 8.7 - ABG Interpretation ABG results: PT/INR, D-dimer PT 13.2 Seconds (9.4-12.1) H 01/13/19 02:06 - Impressions Impressions Echocardiogram 01/12/19 22:17 Impressions: LVEF 20-25%. Mildly dilated left ventricle. Indeterminate diastolic function. Atypical septal motion consistent with bundle branch block. Normal right ventricular structure and function. Mild mitral regurgitation. Mild tricuspid regurgitation. Mild-moderate pulmonary hypertension. A device lead was visualized in the right atrium and right ventricle. Left Ventricular Wall Motion: Rest Echo Findings The apex, apical inferior, mid inferior, basal inferior, apical anterior, mid anterior, basal anterior, apical septal, mid inferior septal, basal inferior septal, apical lateral, mid anterior lateral, basal anterior lateral, mid anterior septal, mid inferior lateral, basal anterior septal and basal inferior lateral vale were hypokinetic. Findings: Study Quality * Technically adequate exam. ECG Findings * Sinus rhythm with BBB. Left Ventricle * LVEF 20-25%. * Mildly dilated left ventricle. * Indeterminate diastolic function. * Atypical septal motion consistent with bundle branch block. Right Ventricle * Normal right ventricular structure and function. Left Atrium * Severely dilated left atrium. Right Atrium * Moderately dilated right atrium. Interatrial Septum * Interatrial septum not well evaluated. Aortic Valve * Aortic valve not well visualized. * No aortic regurgitation. * No aortic stenosis. Mitral Valve * Normal mitral valve structure. * Mild mitral regurgitation. * No mitral stenosis. Tricuspid Valve * Normal tricuspid valve structure. * Mild tricuspid regurgitation. * Mild-moderate pulmonary hypertension. Pulmonic Valve * Normal pulmonic valve structure and function. * Trace pulmonic regurgitation. Aorta * Normally sized aortic root. Pericardium * There is a trivial pericardial effusion present. IVC * The IVC is not well evaluated. Pulmonary Artery * Pulmonary artery not well visualized. Device lead * A device lead was visualized in the right atrium and right ventricle. Foot X-Ray 01/13/19 09:59 IMPRESSION: Soft tissue ulceration along the plantar aspect of the foot at the level of the 1st MTP joint with associated soft tissue swelling suggesting cellulitis. No soft tissue gas. No radiographic evidence of osteomyelitis. D/ / 01/13/2019 13:15:04 Tai Taylor MD / umang Interpreting Provider: Tai Taylor MD Consult Discharge Plan - Plan Referrals: Lucy Araya CNP [Primary Care Provider] -
[2019-01-14] MEDS: Acetaminophen 325 MG TABLET PO PRN (19:49)
[2019-01-14] MEDS: Famotidine 20 MG TABLET PO SCH (19:50)
[2019-01-15] MEDS: *HR* Heparin 5,000 UNIT/ML VIAL SQ SCH ×2 (05:23→16:46)
[2019-01-15 06:22] LABS: Hematocrit 31.6 % (35.3-44.9); Mean Corpuscular HGB Conc 31.6 g/dL (31.6-35.5); Mean Corpuscular Hemoglobin 27.3 pg (28.0-33.3); Mean Corpuscular Volume 86.3 fL (83.0-100.0); Mean Platelet Volume 10.1 fL (9.4-12.4); Platelet Count 340 K/mcL (140-400); Red Blood Count 3.66 M/mcL (3.82-4.97); Red Cell Distribution Width 14.2 % (11.5-14.5); White Blood Count 9.9 K/mcL (4.3-11.1)
[2019-01-15 06:42] LABS: BUN/Creatinine Ratio 24 (6-26); Blood Urea Nitrogen 17 mg/dL (6-20); Calcium 8.6 mg/dL (8.6-10.3); Carbon Dioxide 25 mEq/L (23-29); Chloride 102 mEq/L (98-107); Glucose 214 mg/dL (70-105); Osmolality,Calculated 286 (280-300); Potassium 3.9 mEq/L (3.5-5.1); Sodium 134 mEq/L (136-145); eGFR For African Americans > 60 (> 60); eGFR For Non-African Americans > 60 (> 60)
[2019-01-15] MEDS: Aspirin 325 MG TABLET PO SCH (08:49)
[2019-01-15] MEDS: Piperacillin/Tazobactam 3.375 GM in 0.9 % Sodium Chloride Mini Bag 100 ML IVPB SCH ×3 (08:49→23:55)
[2019-01-15] MEDS: Metoprolol 100 MG TABLET PO SCH ×2 (08:49→19:43)
[2019-01-15] MEDS: Insulin LISPRO 300 UNITS/3 ML VIAL SQ SCH ×5 (08:50→19:47)
[2019-01-15] MEDS: Gentamicin Oint 15 GM TUBE TP SCH (08:51)
[2019-01-15] MEDS: Gabapentin 400 MG CAPSULE PO SCH ×3 (08:51→19:43)
--- NOTE | 2019-01-15 15:27 | Internal Med Progress Note ---
Hospitalist Progress Note - Encounter Date of Encounter: 01/15/19 Time of Encounter: 10:00 - Subjective Interval History: No major events overnight. Patient was seen this a.m. He denied fever, chills or night sweats. He has no nausea, vomiting or abdominal pain. Patient denied chest pain, shortness of breath or palpitation. - Exam Vitals: Temp Pulse Resp BP Pulse Ox 98.6 F 102 15 119/69 94 01/15/19 07:01/15/19 07:01/15/19 07:01/15/19 07:01/15/19 08:45 Exam: General: Patient is alert, oriented 3. Head: Atraumatic, normal inspection, normocephalic. Eye: EOMI, PERRLA, no scleral icterus noted. ENT: Mucous membranes moist. No odontogenic infection noted. Neck: Normal inspection, no meningismus. Respiratory: No respiratory distress, rhonchi, or wheezes noted. Cardiovascular: Regular rate and regular rhythm, S1 and S2 audible. No .GI: Soft, nondistended, normal bowel sounds. Extremities: Bilateral lower extremity dressing, decreased sensation in the toes. Neurological: Alert, oriented 3, no focal deficits. Psychiatric: normal affect, normal mood. Skin: Dry, intact, warm. Normal color. No rashes. - Assessment and Plan (1) Diabetic foot infection Current Visit: Yes Status: Acute (2) SIRS (systemic inflammatory response syndrome) Current Visit: Yes Status: Acute (3) Non-ischemic cardiomyopathy Current Visit: Yes Status: Chronic (4) IDDM (insulin dependent diabetes mellitus) Current Visit: Yes Status: Acute (5) DVT prophylaxis Current Visit: Yes Status: Acute - Summary of Assessment and Plan Summary of Assessment and Plan: Ms. Salter is a 48 year old with a history of IDDM, neuropathy, NICM with EF of 20% who was transferred to [place] from [facility] inpatient service. She was hospitalized the last few days with diabetic foot ulcer and c ellulitis. Because of lack of improvement and concern for possible osteomyelitis, she was transferred for surgical intervention. She did have a bone scan there suggesting osteomyelitis. Despite antibiotics, she continued to have fevers and was transferred here for further care. -Bilateral lower extremity ulcers: - s/p bedside I&D by podiatry. ESR is 90, CRP is 266. - Foot x-ray with no evidence of OM, first MTP joint soft tissue ulceration with soft tissue swelling suggesting cellulitis. CT fooT without signs of OM. Unable to do MRI due to AICD. - Patient is afebrile, hemodynamically stable, leukocytosis resolved. - Left foot wound culture is growing GNR pending final results. - Infectious disease is consulted, continue Zosyn and renally dosed vancomycin day 3. - Continue gabapentin for neuropathy IDDM with hyperglycemia: not controlled - used to receive long acting 140 units at night, glipizide and 10 units of lispro 3 times a day. - Continue Accu-Cheks 3 times a day before meals, medium sliding scale insulin and Levemir 50 units at bedtime. Will add 6 units of Lispro TIDAC. Hyponatremia: not controlled - Likely secondary to dehydration and hyperglycemia. - Given her low EF, we continued to monitor without IV fluid administration. - Order BMP tomorrow Sepsis: - Meets 3/4 criteria at presentation. - management as above. HFrEF S/P AICD: - EF 20/25%, mild MR, mild TR. - On Lasix 75 mg twice a day, continue to hold. Clinically euvolemic - Continue beta blockers. DVT: Heparin SCC BMAT +3. Disposition: continue inpatient. I reviewed independently all laboratory workup, pertinent images including x- rays and CT scans. I also reviewed independently and EKGs and my findings are in the body of my assessment and plan. I ordered the laboratory workup and images myself. I discussed finding with patient's, their families, RN's and consultants involved in the care of the patient. - Time Spent with Patient Total time spent is greater than 50% in coordination of care (as documented) at patient's floor/unit and/or counseling patient: Greater than 35 minutes Plan of Care Discussed with: patient Internal Medicine: Result - Labs CBC & Chem 7: 01/15/19 06:05 01/15/19 06:05 Labs: Short CBC 01/15/19 Range/Units 06:05 WBC 9.9 (4.3-11.1) K/mcL Hgb 10.0 L (11.5-15.4) g/dL Hct 31.6 L (35.3-44.9) % Plt Count 340 (140-400) K/mcL BMP 01/15/19 06:05 Sodium 134 L Potassium 3.9 Chloride 102 Carbon Dioxide 25 BUN 17 Creatinine 0.72 Glucose 214 H Calcium 8.6 - ABG Interpretation ABG results: PT/INR, D-dimer PT 13.2 Seconds (9.4-12.1) H 01/13/19 02:06 Consult Discharge Plan - Plan Referrals: Lucy Araya, ALIRIO [Primary Care Provider] -
[2019-01-15] MEDS: Famotidine 20 MG TABLET PO SCH (19:43)
[2019-01-15] MEDS: Insulin DETEMIR 100 UNIT/ML X5UNITS SQ SCH (19:47)
[2019-01-16] MEDS: *HR* Heparin 5,000 UNIT/ML VIAL SQ SCH ×2 (05:27→17:32)
[2019-01-16 06:22] LABS: Hematocrit 31.4 % (35.3-44.9); Hemoglobin 9.7 g/dL (11.5-15.4); Mean Corpuscular HGB Conc 30.9 g/dL (31.6-35.5); Mean Corpuscular Hemoglobin 27.2 pg (28.0-33.3); Platelet Count 337 K/mcL (140-400); Red Blood Count 3.57 M/mcL (3.82-4.97); White Blood Count 8.9 K/mcL (4.3-11.1)
[2019-01-16 06:49] LABS: BUN/Creatinine Ratio 24 (6-26); Blood Urea Nitrogen 19 mg/dL (6-20); Calcium 8.7 mg/dL (8.6-10.3); Carbon Dioxide 25 mEq/L (23-29); Chloride 101 mEq/L (98-107); Glucose 254 mg/dL (70-105); Osmolality,Calculated 291 (280-300); Potassium 3.9 mEq/L (3.5-5.1); Sodium 135 mEq/L (136-145); eGFR For African Americans > 60 (> 60); eGFR For Non-African Americans > 60 (> 60)
[2019-01-16] MEDS: Metoprolol 100 MG TABLET PO SCH ×2 (09:58→20:25)
[2019-01-16] MEDS: Aspirin 325 MG TABLET PO SCH (09:59)
[2019-01-16] MEDS: Piperacillin/Tazobactam 3.375 GM in 0.9 % Sodium Chloride Mini Bag 100 ML IVPB SCH ×3 (09:59→23:56)
[2019-01-16] MEDS: Gabapentin 400 MG CAPSULE PO SCH ×3 (09:59→20:25)
[2019-01-16] MEDS: Insulin LISPRO 300 UNITS/3 ML VIAL SQ SCH ×7 (10:00→20:25)
[2019-01-16] MEDS ORDERED: *HR* LORazepam 2 MG/ML VIAL IVP ONE (12:04)
--- NOTE | 2019-01-16 13:08 | Internal Med Progress Note ---
Hospitalist Progress Note - Encounter Date of Encounter: 01/16/19 Time of Encounter: 10:00 - Subjective Interval History: No major events overnight. Patient was seen this a.m. He denied fever, chills or night sweats. sHe has no nausea, vomiting or abdominal pain. Patient denied chest pain, shortness of breath or palpitation. She did have good night since she started having diarrhea yesterday. She had 5 bowel movements overnight and she described as watery, nonbloody. - Exam Vitals: Temp Pulse Resp BP Pulse Ox 98.0 F 96 16 134/86 96 01/16/19 10:59 01/16/19 10:59 01/16/19 10:59 01/16/19 10:59 01/16/19 10:59 Exam: General: Patient is alert, oriented 3. Head: Atraumatic, normal inspection, normocephalic. Eye: EOMI, PERRLA, no scleral icterus noted. ENT: Mucous membranes moist. No odontogenic infection noted. Neck: Normal inspection, no meningismus. Respiratory: No respiratory distress, rhonchi, or wheezes noted. Cardiovascular: Regular rate and regular rhythm, S1 and S2 audible. No .GI: Soft, nondistended, normal bowel sounds. Extremities: Bilateral lower extremity dressing, decreased sensation in the toes. Neurological: Alert, oriented 3, no focal deficits. Psychiatric: normal affect, normal mood. Skin: Dry, intact, warm. Normal color. No rashes. - Assessment and Plan (1) Diabetic foot infection Current Visit: Yes Status: Acute (2) SIRS (systemic inflammatory response syndrome) Current Visit: Yes Status: Resolved (3) Diarrhea Current Visit: Yes Status: Acute (4) Non-ischemic cardiomyopathy Current Visit: Yes Status: Chronic (5) IDDM (insulin dependent diabetes mellitus) Current Visit: Yes Status: Acute (6) DVT prophylaxis Current Visit: Yes Status: Acute - Summary of Assessment and Plan Summary of Assessment and Plan: Ms. Salter is a 48 year old with a history of IDDM, neuropathy, NICM with EF of 20% who was transferred to [place] from [facility] inpatient service. She was hospitalized the last few days with diabetic foot ulcer and cellulitis. Because of lack of improvement and concern for possible osteomyelitis, she was transferred for surgical intervention. She did have a bone scan there suggesting osteomyelitis. Despite antibiotics, she continued to have fevers and was transferred here for further care. -Bilateral lower extremity ulcers: - s/p bedside I&D by podiatry. ESR is 90, CRP is 266. - Foot x-ray with no evidence of OM, first MTP joint soft tissue ulceration with soft tissue swelling suggesting cellulitis. CT fooT without signs of OM. Unable to do MRI due to AICD. - Patient is afebrile, hemodynamically stable, leukocytosis resolved. - Left foot wound culture is growing Klebsiella and enterococcus faecalis. - Infectious disease is consulted, continue Zosyn and renally dosed vancomycin day 4. - Continue gabapentin for neuropathy - pain management as per podiatry service. Diarrhea: New event - Watery, non-bloody. No abdominal pain. - C.diff ordered. Anxiety: new event - Had a panic attack yesterday and seems anxious today. - was given 0.5 ativan, will resume her celexa. IDDM with hyperglycemia: not controlled - used to receive long acting 140 units at night, glipizide and 10 units of lispro 3 times a day. - Continue Accu-Cheks 3 times a day before meals, medium sliding scale insulin and 6 units of Lispro TIDAC, and increase her Levemir to 70 units at bedtime. Hyponatremia: resolved. - Order BMP tomorrow Sepsis: - Meets 3/4 criteria at presentation. - management as above. HFrEF S/P AICD: - EF 20/25%, mild MR, mild TR. - On Lasix 75 mg twice a day, continue to hold. Clinically euvolemic - Continue beta blockers. DVT: Heparin SCC BMAT +4. Disposition: continue inpatient. I reviewed independently all laboratory workup, pertinent images including x- rays and CT scans. I also reviewed independently and EKGs and my findings are in the body of my assessment and plan. I ordered the laboratory workup and images myself. I discussed finding with patient's, their families, RN's and consultants involved in the care of the patient. - Time Spent with Patient Total time spent is greater than 50% in coordination of care (as documented) at patient's floor/unit and/or counseling patient: Greater than 35 minutes Plan of Care Discussed with: patient Internal Medicine: Result - Labs CBC & Chem 7: 01/16/19 06:07 01/16/19 06:07 Labs: Short CBC 01/16/19 Range/Units 06:07 WBC 8.9 (4.3-11.1) K/mcL Hgb 9.7 L (11.5-15.4) g/dL Hct 31.4 L (35.3-44.9) % Plt Count 337 (140-400) K/mcL BMP 01/16/19 06:07 Sodium 135 L Potassium 3.9 Chloride 101 Carbon Dioxide 25 BUN 19 Creatinine 0.79 Glucose 254 H Calcium 8.7 - ABG Interpretation ABG results: PT/INR, D-dimer PT 13.2 Seconds (9.4-12.1) H 01/13/19 02:06 Consult Discharge Plan - Plan Referrals: Lucy Araya CNP [Primary Care Provider] -
--- NOTE | 2019-01-16 14:51 | Infectious Disease Progress No ---
ID Progress Note Date of Encounter: 01/16/19 Time of Encounter: 14:49 - Subjective Subjective: Patient seen and examined. No acute events noted overnight. Patient states overall she feels okay. States she feels a little more shortness of breath today and has a moist nonproductive cough. Denies chest pain. Denies nausea, vomiting, or constipation. States she started having diarrhea last night and has had 4 bowel movements so far today that are mucousy and watery. States she has some upper abdominal fullness and is concerned that maybe they may have stopped her water pill. States her appetite is okay. Denies oral thrush or skin rashes. Denies any urinary complaints. - Objective CBC & Chem 7: 01/18/19 06:37 01/18/19 06:37 - Exam Vitals: Temp Pulse Resp BP Pulse Ox 98.1 F 93 16 131/85 97 01/16/19 14:33 01/16/19 14:33 01/16/19 14:33 01/16/19 14:33 01/16/19 14:33 Exam: Head: Atraumatic, normal inspection, normocephalic. Eye: EOMI, PERRLA, no scleral icterus noted. ENT: Mucous membranes moist. No odontogenic infection noted. Neck: Normal inspection, no meningismus. Respiratory: Clear to auscultation. No rales, respiratory distress, rhonchi, or wheezes noted. Cardiovascular: Regular rate and rhythm, S1 and S2 audible. No murmurs, rubs, or gallops. GI: Soft, obese, normal bowel sounds. Non-tender Extremities:No joint swelling, pedal edema, or tenderness noted. BLE dressings C/D/I. Neurological: Alert, oriented 3, no focal deficits. Psychiatric: normal affect, normal mood. Skin: Dry, intact, warm. Normal color. No rashes. - Assessment and Plan (1) Sepsis Current Visit: Yes Status: Acute The patient had three SIRS criteria. Likely secondary to left foot infection. WBC normal. Tachycardia resolved. Afebrile. Blood cultures drawn 01/09/19 are negative x 2 sets. Repeat blood cultures drawn 01/12/19 are no growth today x 2 sets. Qualifiers: Sepsis type: sepsis due to unspecified organism Qualified Code(s): A41.9 - Sepsis, unspecified organism SNOMED Code(s): 61098103 (2) Osteomyelitis Current Visit: Yes Status: Suspected Suspected. Location: Tarsal bones left foot. Causative organism: E. cloacae, K. pneumoniae, amp-sensitive E. faecalis, and S. epi Repeat wound culture obtained here is positive for Klebsiella pneumoniae and Enterococcus faecalis (pansensitive). Bone scan completed at [facility] showed possible OM of several tarsal bones. X-ray of the left foot negative for osteomyelitis. ESR elevated at 90 with a CRP of 266. Podiatry consulted. Awaiting further recommendations from them. Currently on Vanc and Zosyn. Qualifiers: Osteomyelitis type: acute hematogenous Osteomyelitis location: foot Laterality: left Qualified Code(s): M86.072 - Acute hematogenous osteomyelitis, left ankle and foot SNOMED Code(s): 81430235 (3) Diabetic foot infection Current Visit: Yes Status: Acute Location: Left foot. Causative organism: E. cloacae, K. pneumoniae, S. epi and E. faecalis. Repeat wound culture obtained here is positive for Klebsiella pneumonia and Enterococcus faecalis. Likely secondary to chronic diabetic foot ulcer. Bone scan concerning for OM, but x-ray negative. However, ESR and CRP very elevated. Podiatry consulted. Currently on Vanc and Zosyn. SNOMED Code(s): 887693291 (4) Non-ischemic cardiomyopathy Current Visit: Yes Status: Chronic Status post pacer/AICD. Follows with cardiology at OSH. SNOMED Code(s): 09347326 (5) Diabetes Current Visit: No Status: Chronic Blood sugars remain elevated. Recommend aggressive glucose monitoring and control to promote wound healing and prevent re-infection. Management per the primary team. Qualifiers: Diabetes mellitus type: type 2 Diabetes mellitus fpc insulin use: unspecified [employer] insulin use status Diabetes mellitus complication status: without complication Qualified Code(s): E11.9 - Type 2 diabetes mellitus without complications SNOMED Code(s): 94347831 (6) HLD (hyperlipidemia) Current Visit: No Status: Chronic SNOMED Code(s): 77966863 (7) HTN (hypertension) Current Visit: No Status: Chronic Qualifiers: Hypertension type: essential hypertension Qualified Code(s): I10 - Essential (primary) hypertension SNOMED Code(s): 62716416 (8) ICD (implantable cardioverter-defibrillator) in place Current Visit: No Status: Chronic SNOMED Code(s): 930651404 (9) Obesity Current Visit: No Status: Chronic Qualifiers: Obesity type: unspecified obesity type SNOMED Code(s): 042460769, 020783646 (10) Diarrhea Current Visit: Yes Status: Acute Patient reports several loose, watery stools today. GI panel pending. Empiric C. diff precautions for now. Qualifiers: Diarrhea type: unspecified type Qualified Code(s): R19.7 - Diarrhea, unspecified SNOMED Code(s): 55396206 - Recommendations Recommendations: Await GI panel. Await blood cultures to finalize. Diabetes management per the primary team. Wound care and activity and possible further surgical intervention per the Podiatry team. Continue Vancomycin IV. Pharmacy to dose. Goal trough ~15. Continue Zosyn 3.375 grams IV Q8H. Will plan to de-escalate antibiotics once we have further recommendations from the Podiatry team. Duration of treatment depends on the clinical picture. Monitor renal function and for drug toxicity and dose-adjust antibiotics. C. diff precautions per hospital policy. Can discontinue if C. diff negative. Consult Discharge Plan - Plan Additional Instructions: Follow up in wound care center s/p d/c. LEFT FOOT: Do not change left foot dressing, leave in place until wound care appointment Do not get foot wet RIGHT FOOT: Wash with warm water and soap daily. Cover with calcium alginate, 4x4 dry gauze, and medipore tape Change dressing daily Referrals: Lucy Araya, ALIRIO [Primary Care Provider] - - Attending Attestation I have personally performed a face to face evaluation on this patient. I have reviewed and agree with the care plan. History and Exam by me shows: Assessment and plan: 1. Sepsis 2. Osteomyelitis Left foot tarsal bone 3. DM2 poorly controlled 4. Morbid obesity 5. Diabetic foot ulcer Recommendations: Await GI panel. Await blood cultures to finalize. Diabetes management per the primary team. Wound care and activity and possible further surgical intervention per the Podiatry team. Continue Vancomycin IV. Pharmacy to dose. Goal trough ~15. Continue Zosyn 3.375 grams IV Q8H. Will plan to de-escalate antibiotics once we have further recommendations from the Podiatry team. Duration of treatment depends on the clinical picture. Monitor renal function and for drug toxicity and dose-adjust antibiotics. C. diff precautions per hospital policy. Can discontinue if C. diff negative.
[2019-01-16] MEDS: Gentamicin Oint 15 GM TUBE TP SCH (16:26)
--- NOTE | 2019-01-16 20:10 | Podiatry Progress Note ---
Date of Encounter: 01/16/19 Time of Encounter: 14:39 - Assessment and Plan (1) Diabetic foot infection Current Visit: Yes Status: Acute Assssment: Left foot: Mantilla stage II ulceration left foot Cellulitis, improved from previous Phelgmon noted to right medial foot Erythema and edema noted to periwound, left foot, improved from previous No lymphangitis noted, left foot CT left foot non suspicious for OM or abscess at this time Right foot: Mantilla stage II ulceration right foot, appears stable No erythema, no edema, no cellulitis, no lymphangitis noted WBC 8.9, improved from previous, afebrile ESR 90, CRP 266, A1C 13.4 3/4 PT/DP bilaterally Wound cultures returned klebsiella and enterococcus Blood cultures and anaerobic cultures pending Plan: Continue IV ATB per ID recommendations- appreciate input Continue local wound care as ordered XR of left foot ordered to evaluate sesamoids Patient will most likely need surgical debridement, will discuss with surgeon Right foot: Cleansed with 0.9 NS, covered ulcer with calcium alginate, 4x4 dry gauze, kerlix, and medipore tape Left foot: Cleansed with 0.9 NS, painted all macerated tissue with betadine, covered with calcium alginate, 4x4 dry gauze, kerlix, and medipore tape Impression: XR/XR foot 3V RT IMPRESSION: Soft tissue ulceration along the plantar aspect of the foot at the level of the 1st MTP joint with associated soft tissue swelling suggesting cellulitis. No soft tissue gas. No radiographic evidence of osteomyelitis. D/ / 01/13/2019 13:15:04 Tai Taylor MD / umang XR/XR foot 3V LT IMPRESSION: Soft tissue ulcer along the medial and plantar surface of the forefoot. Soft tissue swelling compatible with cellulitis. No radiographic findings of acute osteomyelitis. D/ / Grayson Soni MD / Grayson Soni MD Interpreting Provider: Grayson Soni MD R #: [id number] CT/CT foot LT wo con IMPRESSION: 1. Shallow soft tissue ulceration plantar to the 1st MTP joint with underlying cellulitis. No definite well-defined drainable fluid collection. 2. No CT evidence of osteomyelitis or other acute osseous abnormality. D/ / Nazario Villegas MD / Nazario Villegas MD Interpreting Provider: Nazario Villegas MD (2) IDDM (insulin dependent diabetes mellitus) Current Visit: Yes Status: Acute Assessment: HGB A1C 13.4 Plan: recommend tight glycemic control- primary managing recommend diabetic education/nutritional education Subjective Principal diagnosis: Bilateral diabetic foot ulcers Interval history: Patient awake in bed. Tearful, reporting her anxiety has been out of control. Alert and oriented x 3. Denies any fevers, chills, nausea, vomiting, or diarrhea. Denies any calf pain, chest pain, or shortness of breath. Denies any acute overnight events. No other questions or concerns at this time Objective - Vital Signs Vital Signs: Vital Signs Temp Pulse Resp BP Pulse Ox 01/16/19 14:33 98.1 F 93 16 131/85 97 01/16/19 10:59 98.0 F 96 16 134/86 96 01/16/19 07:32 98.9 F 98 16 141/81 92 01/16/19 03:15 98.1 F 99 16 146/92 96 Intake and Output 01/16/19 01/16/19 01/16/19 07:59 15:59 23:59 Intake Total 600 / 1680 360 / 1680 720 / 1680 Balance 600 / 1680 360 / 1680 720 / 1680 Intake: IV Fluids 600 / 1200 600 / 1200 Zosyn 3.375 GM In 0.9 % Sodium 100 / 200 100 / 200 Chloride (Mini-Bag +) 100 ML @ 25 mls/hr IVPB Q8HR [facility] Rx#: [id number] Vancocin 1,750 MG In 0.9 % 500 / 1000 500 / 1000 Sodium Chloride 500 ML @ 333. 333 mls/hr IVPB Q12H [facility] Rx#: [id number] Oral 0 / 480 360 / 480 120 / 480 Other: Meal Lunch Dinner Percent of Meal Consumed 100% 75% Stool Size Moderate Stool Consistency loose liquid # Voids 1 1 # Bowel Movements 1 1 Weight 114.2 kg Blood Glucose* 220 282 246 Patient Weight 01/16/19 23:59 Weight 114.2 kg - Exam Exam: Constitiutional: Alert and oriented x 3. Well nourished. No acute distress noted Vascular: 3/4 DP/PT bilaterally, CFT <3 sec to all digits, warm to warm from tibia to toes bilaterally, no calf pain with squeeze BLE Neurologic: Absent sensation to touch, normal plantar response Dermatologic: Right mantilla grade II ulceration 1st submetatarsal, left mantilla grade II ulceration 1st submetatarsal with phlagmon to left medial aspect of foot, erythema and edema noted Musculoskeletal: 5/5 muscle strength and normal tone bilaterally. - Lab Result Diagrams: 01/16/19 06:07 01/16/19 06:07 Labs: Abnormal lab results WBC 12.8 K/mcL (4.3-11.1) H 01/13/19 02:06 RBC 3.57 M/mcL (3.82-4.97) L 01/16/19 06:07 Hgb 9.7 g/dL (11.5-15.4) L 01/16/19 06:07 Hct 31.4 % (35.3-44.9) L 01/16/19 06:07 MCH 27.2 pg (28.0-33.3) L 01/16/19 06:07 MCHC 30.9 g/dL (31.6-35.5) L 01/16/19 06:07 Neutrophils # 9.9 K/mcL (1.6-8.9) H 01/13/19 02:06 ESR 90 mm/hr (0-15) H 01/13/19 02:06 PT 13.2 Seconds (9.4-12.1) H 01/13/19 02:06 Sodium 135 mEq/L (136-145) L 01/16/19 06:07 Chloride 97 mEq/L (98-107) L 01/13/19 02:07 BUN 24 mg/dL (6-20) H 01/12/19 19:28 Glucose 254 mg/dL (70-105) H 01/16/19 06:07 POC Glucose 246 mg/dL (70-99) H 01/16/19 16:09 Hemoglobin A1c 13.4 % (-5.6) H 01/13/19 02:06 Calcium 8.0 mg/dL (8.6-10.3) L 01/13/19 02:07 AST 7 Units/L (13-39) L 01/13/19 02:07 C-Reactive Protein 266 mg/L (Less than 10) H 01/13/19 02:07 Albumin 3.0 g/dL (3.5-5.7) L 01/13/19 02:07 Albumin/Globulin Ratio 0.9 (1.1-2.2) L 01/13/19 02:07 Vancomycin Trough 12 mcg/mL (5-10) H 01/15/19 22:44 Microbiology, Last 48 Hours 01/13/19 10:00 Anaerobic Culture - Preliminary Left Foot Culture is incubating. 01/13/19 10:00 Wound Culture - Final Left Foot Klebsiella pneu.ssp pneumoniae Enterococcus faecalis Consult Discharge Plan - Plan Referrals: Lucy Araya CNP [Primary Care Provider] -
[2019-01-16] MEDS: Famotidine 20 MG TABLET PO SCH (20:25)
[2019-01-16] MEDS: Insulin DETEMIR 100 UNIT/ML X5UNITS SQ SCH (20:25)
[2019-01-17] MEDS: Ipratropium/Albuterol Neb 3 ML IH PRN ×2 (03:05→11:03)
[2019-01-17] MEDS: *HR* Heparin 5,000 UNIT/ML VIAL SQ SCH ×2 (05:29→17:47)
[2019-01-17] MEDS: Piperacillin/Tazobactam 3.375 GM in 0.9 % Sodium Chloride Mini Bag 100 ML IVPB SCH ×2 (08:18→16:08)
[2019-01-17] MEDS: Metoprolol 100 MG TABLET PO SCH ×2 (08:19→21:53)
[2019-01-17] MEDS: Aspirin 325 MG TABLET PO SCH (08:19)
[2019-01-17] MEDS: Acetaminophen 325 MG TABLET PO PRN (08:19)
[2019-01-17] MEDS: Gabapentin 400 MG CAPSULE PO SCH ×3 (08:19→21:53)
[2019-01-17] MEDS: Insulin LISPRO 300 UNITS/3 ML VIAL SQ SCH ×7 (08:39→21:54)
[2019-01-17] MEDS ORDERED: ALPRAZolam 0.5 MG TABLET PO PRN (13:02)
[2019-01-17] MEDS: Gentamicin Oint 15 GM TUBE TP SCH (15:21)
--- NOTE | 2019-01-17 15:34 | Podiatry Progress Note ---
Date of Encounter: 01/17/19 Time of Encounter: 13:53 - Assessment and Plan (1) Diabetic foot infection Current Visit: Yes Status: Acute Assssment: Left foot: Mantilla stage II ulceration left foot Cellulitis, improved from previous Phelgmon noted to right medial foot Erythema and edema noted to periwound, left foot, improved from previous No lymphangitis noted, left foot CT left foot non suspicious for OM or abscess at this time Right foot: Mantilla stage II ulceration right foot, appears stable No erythema, no edema, no cellulitis, no lymphangitis noted WBC 8.9 yesterday, no lab work today, afebrile ESR 90, CRP 266, A1C 13.4 3/4 PT/DP bilaterally Wound cultures returned klebsiella and enterococcus Blood cultures and anaerobic cultures pending Plan: Continue IV ATB per ID recommendations- appreciate input Continue local wound care as ordered OR tomorrow for surgical debridement NPO after breakfast Right foot: Cleansed with 0.9 NS, covered ulcer with calcium alginate, 4x4 dry gauze, kerlix, and medipore tape Left foot: Cleansed with 0.9 NS, painted all macerated tissue with betadine, covered with adaptic, 4x4 dry gauze, kerlix, and medipore tape Impression: XR/XR foot 3V RT IMPRESSION: Soft tissue ulceration along the plantar aspect of the foot at the level of the 1st MTP joint with associated soft tissue swelling suggesting cellulitis. No soft tissue gas. No radiographic evidence of osteomyelitis. D/ / 01/13/2019 13:15:04 Tai Taylor MD / umang XR/XR foot 3V LT IMPRESSION: Soft tissue ulcer along the medial and plantar surface of the forefoot. Soft tissue swelling compatible with cellulitis. No radiographic findings of acute osteomyelitis. D/ / Grayson Soni MD / Grayson Soni MD Interpreting Provider: Grayson Soni MD R #: [id number] CT/CT foot LT wo con IMPRESSION: 1. Shallow soft tissue ulceration plantar to the 1st MTP joint with underlying cellulitis. No definite well-defined drainable fluid collection. 2. No CT evidence of osteomyelitis or other acute osseous abnormality. D/ / Nazario Villegas MD / Nazario Villegas MD Interpreting Provider: Nazario Villegas MD (2) IDDM (insulin dependent diabetes mellitus) Current Visit: Yes Status: Acute Assessment: HGB A1C 13.4 Plan: recommend tight glycemic control- primary managing recommend diabetic education/nutritional education Subjective Principal diagnosis: Bilateral diabetic foot ulcers Interval history: Patient awake in bed. Reports multiple anxiety attacks, but at this time calm. Alert and oriented x 3. Denies any fevers, chills, nausea, vomiting, or diarrhea. Denies any calf pain, chest pain, or shortness of breath. Denies any acute overnight events. Discussed with patient need for surgery, verbalized understanding, agreeable. No other questions or concerns at this time Objective - Vital Signs Vital Signs: Vital Signs Temp Pulse Resp BP Pulse Ox 01/17/19 14:34 98.0 F 89 14 113/71 96 01/17/19 12:00 98.1 F 89 14 122/75 94 01/17/19 11:03 17 97 01/17/19 06:55 98.2 F 92 14 130/84 98 01/17/19 03:57 97.8 F 89 16 141/90 97 01/17/19 03:09 16 99 01/16/19 20:22 98.6 F 96 16 122/78 97 Intake and Output 01/16/19 01/17/19 01/17/19 23:59 07:59 15:59 Intake Total 820 / 1780 600 / 940 340 / 940 Output Total 0 / 0 Balance 820 / 1780 600 / 940 340 / 940 Intake: IV Fluids 700 / 1300 600 / 700 100 / 700 Zosyn 3.375 GM In 0.9 % Sodium 200 / 300 100 / 200 100 / 200 Chloride (Mini-Bag +) 100 ML @ 25 mls/hr IVPB Q8HR [facility] Rx#: [id number] Vancocin 1,750 MG In 0.9 % 500 / 1000 500 / 500 Sodium Chloride 500 ML @ 333. 333 mls/hr IVPB Q12H [facility] Rx#: [id number] Oral 120 / 480 240 / 240 Output: Urine 0 / 0 Other: Meal Dinner Breakfast Percent of Meal Consumed 75% 95% # Voids 0 0 # Bowel Movements 1 Weight 116.1 kg Blood Glucose* 280 265 Patient Weight 01/17/19 23:59 Weight 116.1 kg - Exam Exam: Constitiutional: Alert and oriented x 3. Well nourished. No acute distress noted Vascular: 3/4 DP/PT bilaterally, CFT <3 sec to all digits, warm to warm from tibia to toes bilaterally, no calf pain with squeeze BLE Neurologic: Absent sensation to touch, normal plantar response Dermatologic: Right mantilla grade II ulceration 1st submetatarsal, left mantilla grade II ulceration 1st submetatarsal with phlagmon to left medial aspect of foot, erythema and edema noted Musculoskeletal: 5/5 muscle strength and normal tone bilaterally. - Lab Result Diagrams: 01/16/19 06:07 01/16/19 06:07 Labs: Abnormal lab results WBC 12.8 K/mcL (4.3-11.1) H 01/13/19 02:06 RBC 3.57 M/mcL (3.82-4.97) L 01/16/19 06:07 Hgb 9.7 g/dL (11.5-15.4) L 01/16/19 06:07 Hct 31.4 % (35.3-44.9) L 01/16/19 06:07 MCH 27.2 pg (28.0-33.3) L 01/16/19 06:07 MCHC 30.9 g/dL (31.6-35.5) L 01/16/19 06:07 Neutrophils # 9.9 K/mcL (1.6-8.9) H 01/13/19 02:06 ESR 90 mm/hr (0-15) H 01/13/19 02:06 PT 13.2 Seconds (9.4-12.1) H 01/13/19 02:06 Sodium 135 mEq/L (136-145) L 01/16/19 06:07 Chloride 97 mEq/L (98-107) L 01/13/19 02:07 BUN 24 mg/dL (6-20) H 01/12/19 19:28 Glucose 254 mg/dL (70-105) H 01/16/19 06:07 POC Glucose 280 mg/dL (70-99) H 01/16/19 20:15 Hemoglobin A1c 13.4 % (-5.6) H 01/13/19 02:06 Calcium 8.0 mg/dL (8.6-10.3) L 01/13/19 02:07 AST 7 Units/L (13-39) L 01/13/19 02:07 C-Reactive Protein 266 mg/L (Less than 10) H 01/13/19 02:07 Albumin 3.0 g/dL (3.5-5.7) L 01/13/19 02:07 Albumin/Globulin Ratio 0.9 (1.1-2.2) L 01/13/19 02:07 Vancomycin Trough 15 mcg/mL (5-10) H 01/17/19 10:53 Microbiology, Last 48 Hours 01/13/19 10:00 Anaerobic Culture - Preliminary Left Foot Culture is incubating. 01/13/19 10:00 Wound Culture - Final Left Foot Klebsiella pneu.ssp pneumoniae Enterococcus faecalis Consult Discharge Plan - Plan Referrals: Lucy Araya CNP [Primary Care Provider] -
--- NOTE | 2019-01-17 16:32 | Internal Med Progress Note ---
Hospitalist Progress Note - Encounter Date of Encounter: 01/17/19 Time of Encounter: 10:00 - Subjective Interval History: No major events overnight. Patient was seen this a.m. He denied fever, chills or night sweats. sHe has no nausea, vomiting or abdominal pain. Patient denied chest pain, shortness of breath or palpitation. Her diarrhea resolved and her anxiety is under control. - Exam Vitals: Temp Pulse Resp BP Pulse Ox 98.0 F 89 14 113/71 96 01/17/19 14:34 01/17/19 14:34 01/17/19 14:34 01/17/19 14:34 01/17/19 14:34 Exam: General: Patient is alert, oriented 3. Head: Atraumatic, normal inspection, normocephalic. Eye: EOMI, PERRLA, no scleral icterus noted. ENT: Mucous membranes moist. No odontogenic infection noted. Neck: Normal inspection, no meningismus. Respiratory: No respiratory distress, rhonchi, or wheezes noted. Cardiovascular: Regular rate and regular rhythm, S1 and S2 audible. No .GI: Soft, nondistended, normal bowel sounds. Extremities: Bilateral lower extremity dressing, decreased sensation in the toes. Neurological: Alert, oriented 3, no focal deficits. Psychiatric: normal affect, normal mood. Skin: Dry, intact, warm. Normal color. No rashes. - Assessment and Plan (1) Diabetic foot infection Current Visit: Yes Status: Acute (2) SIRS (systemic inflammatory response syndrome) Current Visit: Yes Status: Resolved (3) Diarrhea Current Visit: Yes Status: Acute (4) Non-ischemic cardiomyopathy Current Visit: Yes Status: Chronic (5) IDDM (insulin dependent diabetes mellitus) Current Visit: Yes Status: Acute (6) DVT prophylaxis Current Visit: Yes Status: Acute - Summary of Assessment and Plan Summary of Assessment and Plan: Ms. Salter is a 48 year old with a history of IDDM, neuropathy, NICM with EF of 20% who was transferred to [place] from [facility] inpatient service. She was hospitalized the last few days with diabetic foot ulcer and cellulitis. Because of lack of improvement and concern for possible osteomyelitis, she was transferred for surgical intervention. She did have a bone scan there suggesting osteomyelitis. Despite antibiotics, she continued to have fevers and was transferred here for further care. -Bilateral lower extremity ulcers: - s/p bedside I&D by podiatry. ESR is 90, CRP is 266. - Foot x-ray with no evidence of OM, first MTP joint soft tissue ulceration with soft tissue swelling suggesting cellulitis. CT fooT without signs of OM. Unable to do MRI due to AICD. - Patient is afebrile, hemodynamically stable, leukocytosis resolved. - Left foot wound culture is growing Klebsiella and enterococcus faecalis. - Infectious disease is consulted, continue Zosyn and renally dosed vancomycin day 5. - Continue gabapentin for neuropathy - pain management as per podiatry service. - Spoke with epigastric, we be taken to OR on Diarrhea: resolved - Watery, non-bloody. No abdominal pain. - C.diff - Anxiety: new event - Had a panic attack yesterday and seems anxious today. - start on 0.5 ativan BID PRN for anxiety. will resume her celexa. IDDM with hyperglycemia: not controlled - used to receive long acting 140 units at night, glipizide and 10 units of lispro 3 times a day. - Continue Accu-Cheks 3 times a day before meals, medium sliding scale insulin. Increase her lispro to 10 units of TIDAC, and keep her Levemir to 70 units at bedtime. Hyponatremia: resolved. - Order BMP tomorrow Sepsis: - Meets 3/4 criteria at presentation. - management as above. HFrEF S/P AICD: - EF 20/25%, mild MR, mild TR. - On Lasix 75 mg twice a day, continue to hold. Clinically euvolemic - Continue beta blockers. DVT: Heparin SCC BMAT +4. Disposition: continue inpatient. I reviewed independently all laboratory workup, pertinent images including x- rays and CT scans. I also reviewed independently and EKGs and my findings are in the body of my assessment and plan. I ordered the laboratory workup and im ages myself. I discussed finding with patient's, their families, RN's and consultants involved in the care of the patient. - Time Spent with Patient Total time spent is greater than 50% in coordination of care (as documented) at patient's floor/unit and/or counseling patient: Plan of Care Discussed with: patient Internal Medicine: Result - Labs CBC & Chem 7: 01/16/19 06:07 01/16/19 06:07 - ABG Interpretation ABG results: PT/INR, D-dimer PT 13.2 Seconds (9.4-12.1) H 01/13/19 02:06 - Impressions Impressions Foot X-Ray 01/16/19 09:19 IMPRESSION: Soft tissue ulcer along the medial and plantar surface of the forefoot. Soft tissue swelling compatible with cellulitis. No radiographic findings of acute osteomyelitis. D/ / Grayson Soni MD / Grayson Soni MD Interpreting Provider: Grayson Soni MD Consult Discharge Plan - Plan Referrals: Lucy Araya CNP [Primary Care Provider] - (3) Diarrhea Qualifiers: Diarrhea type: unspecified type Qualified Code(s): R19.7 - Diarrhea, unspecified
[2019-01-17] MEDS: Famotidine 20 MG TABLET PO SCH (21:54)
[2019-01-17] MEDS: Insulin DETEMIR 100 UNIT/ML X5UNITS SQ SCH (21:54)
[2019-01-18] MEDS: Piperacillin/Tazobactam 3.375 GM in 0.9 % Sodium Chloride Mini Bag 100 ML IVPB SCH ×3 (00:39→15:52)
[2019-01-18] MEDS: *HR* Heparin 5,000 UNIT/ML VIAL SQ SCH ×2 (06:46→15:45)
[2019-01-18 07:08] LABS: Hematocrit 33.4 % (35.3-44.9); Hemoglobin 10.5 g/dL (11.5-15.4); Mean Corpuscular HGB Conc 31.4 g/dL (31.6-35.5); Mean Corpuscular Hemoglobin 27.3 pg (28.0-33.3); Mean Platelet Volume 9.8 fL (9.4-12.4); Platelet Count 374 K/mcL (140-400); Red Blood Count 3.84 M/mcL (3.82-4.97); Red Cell Distribution Width 14.3 % (11.5-14.5); White Blood Count 11.2 K/mcL (4.3-11.1)
[2019-01-18 07:28] LABS: BUN/Creatinine Ratio 22 (6-26); Blood Urea Nitrogen 17 mg/dL (6-20); Calcium 8.7 mg/dL (8.6-10.3); Carbon Dioxide 28 mEq/L (23-29); Chloride 102 mEq/L (98-107); Glucose 194 mg/dL (70-105); Osmolality,Calculated 295 (280-300); Potassium 3.7 mEq/L (3.5-5.1); Sodium 139 mEq/L (136-145); eGFR For African Americans > 60 (> 60); eGFR For Non-African Americans > 60 (> 60)
[2019-01-18] MEDS: Insulin LISPRO 300 UNITS/3 ML VIAL SQ SCH ×6 (08:53→17:31)
[2019-01-18] MEDS: Aspirin 325 MG TABLET PO SCH (08:54)
[2019-01-18] MEDS: Gentamicin Oint 15 GM TUBE TP SCH (08:55)
[2019-01-18] MEDS: Gabapentin 400 MG CAPSULE PO SCH ×2 (08:55→15:13)
[2019-01-18] MEDS: Metoprolol 100 MG TABLET PO SCH (08:55)
--- NOTE | 2019-01-18 15:24 | Infectious Disease Progress No ---
ID Progress Note Date of Encounter: 01/18/19 Time of Encounter: 15:22 - Subjective Subjective: Patient seen and examined. No acute events noted overnight. Patient states overall she feels okay. Denies chest pain, shortness of breath, or cough. Denies nausea, vomiting, or constipation. States diarrhea is better and she is still having 3-4 bowel movements per day. Denies abdominal pain or urinary complaints. States her appetite is okay, but she is currently NPO for surgery later today. Denies oral thrush or skin rashes. - Objective CBC & Chem 7: 01/18/19 06:37 01/18/19 06:37 - Exam Vitals: Temp Pulse Resp BP Pulse Ox 97.7 F 82 16 114/74 94 01/18/19 14:19 01/18/19 14:19 01/18/19 14:19 01/18/19 14:19 01/18/19 14:19 Exam: Head: Atraumatic, normal inspection, normocephalic. Eye: EOMI, PERRLA, no scleral icterus noted. ENT: Mucous membranes moist. No odontogenic infection noted. Neck: Normal inspection, no meningismus. Respiratory: Clear to auscultation. No rales, respiratory distress, rhonchi, or wheezes noted. Cardiovascular: Regular rate and rhythm, S1 and S2 audible. No murmurs, rubs, or gallops. GI: Soft, obese, normal bowel sounds. Non-tender Extremities:No joint swelling, pedal edema, or tenderness noted. BLE dressings C/D/I. Neurological: Alert, oriented 3, no focal deficits. Psychiatric: normal affect, normal mood. Skin: Dry, intact, warm. Normal color. No rashes. - Assessment and Plan (1) Sepsis Current Visit: Yes Status: Acute The patient had three SIRS criteria. Likely secondary to left foot infection. WBC up a little today. Tachycardia resolved. Afebrile. Blood cultures drawn 01/09/19 are negative x 2 sets. Repeat blood cultures drawn 01/12/19 are negative x 2 sets. Qualifiers: Sepsis type: sepsis due to unspecified organism Qualified Code(s): A41.9 - Sepsis, unspecified organism SNOMED Code(s): 01719381 (2) Osteomyelitis Current Visit: Yes Status: Suspected Suspected. Location: Tarsal bones left foot. Causative organism: E. cloacae, K. pneumoniae, amp-sensitive E. faecalis, and S. epi Repeat wound culture obtained here is positive for Klebsiella pneumoniae and Enterococcus faecalis (pansensitive). Bone scan completed at [facility] showed possible OM of several tarsal bones. X-ray of the left foot negative for osteomyelitis. ESR elevated at 90 with a CRP of 266. Podiatry consulted. Planning operative debridement later today. Currently on Vanc and Zosyn. Qualifiers: Osteomyelitis type: acute hematogenous Osteomyelitis location: foot Laterality: left Qualified Code(s): M86.072 - Acute hematogenous osteomyelitis, left ankle and foot SNOMED Code(s): 14772496 (3) Diabetic foot infection Current Visit: Yes Status: Acute Location: Left foot. Causative organism: E. cloacae, K. pneumoniae, S. epi and E. faecalis. Repeat wound culture obtained here is positive for Klebsiella pneumonia and Enterococcus faecalis. Likely secondary to chronic diabetic foot ulcer. Bone scan concerning for OM, but x-ray negative. However, ESR and CRP very elevated. Podiatry consulted. Planning operative debridement later today. Currently on Vanc and Zosyn. SNOMED Code(s): 356733732 (4) Non-ischemic cardiomyopathy Current Visit: Yes Status: Chronic Status post pacer/AICD. Follows with cardiology at OSH. SNOMED Code(s): 01568347 (5) Diabetes Current Visit: No Status: Chronic Blood sugars remain elevated. Recommend aggressive glucose monitoring and control to promote wound healing and prevent re-infection. Management per the primary team. Qualifiers: Diabetes mellitus type: type 2 Diabetes mellitus assisted insulin use: unspecified assisted insulin use status Diabetes mellitus complication status: without complication Qualified Code(s): E11.9 - Type 2 diabetes mellitus without complications SNOMED Code(s): 70825705 (6) HLD (hyperlipidemia) Current Visit: No Status: Chronic SNOMED Code(s): 71350885 (7) HTN (hypertension) Current Visit: No Status: Chronic Qualifiers: Hypertension type: essential hypertension Qualified Code(s): I10 - Essential (primary) hypertension SNOMED Code(s): 12533233 (8) ICD (implantable cardioverter-defibrillator) in place Current Visit: No Status: Chronic SNOMED Code(s): 597036053 (9) Obesity Current Visit: No Status: Chronic Qualifiers: Obesity type: unspecified obesity type SNOMED Code(s): 559296468, 870589204 (10) Diarrhea Current Visit: Yes Status: Acute Patient reports several loose, watery stools today. C. diff negative. Start probiotics. Qualifiers: Diarrhea type: unspecified type Qualified Code(s): R19.7 - Diarrhea, unspecified SNOMED Code(s): 12691662 - Recommendations Recommendations: . Diabetes management per the primary team. Wound care and activity. Await intra-op findings, cultures, and pathology. Continue Vancomycin IV. Pharmacy to dose. Goal trough ~15. Continue Zosyn 3.375 grams IV Q8H. Will plan to de-escalate antibiotics post-op. Duration of treatment depends on the clinical picture. Monitor renal function and for drug toxicity and dose-adjust antibiotics. manager creative services to assist with discharge planning. Consult Discharge Plan - Plan Referrals: Lucy Araya CNP [Primary Care Provider] -
[2019-01-18] MEDS ORDERED: Calcium Gluconate 1,000 MG/10 ML VIAL ONE (17:16)
--- NOTE | 2019-01-18 17:24 | Internal Med Progress Note ---
Hospitalist Progress Note - Encounter Date of Encounter: 01/18/19 Time of Encounter: 08:45 - Subjective Interval History: Pt seen and examined. No acute events overnight. She is sitting on her bed comfortably and has no new complaints. She denies abdominal pain, fever, chills and foot pain. - Exam Vitals: Temp Pulse Resp BP Pulse Ox 97.7 F 82 16 114/74 94 01/18/19 14:19 01/18/19 14:19 01/18/19 14:19 01/18/19 14:01/18/19 14:19 Exam: GENERAL: Not in distress. Alert and Oriented HEENT: EOM, PERRLA MOUTH: Good oral hygiene NECK:No JVD, No lymph nodes. CHEST AND LUNGS: Normal breath sounds, no wheezes or crackles HEART: S1 and S2 normal, no murmurs ABDOMEN: Soft, nontender, no organomegaly SKIN: Normal color, no rahses, no lesions EXTREMITIES: Clean dressing on lower extemity. No drainage observed NEUROLOGICAL: Normal cognition, normal motor and sensory exam. - Assessment and Plan (1) DVT prophylaxis Current Visit: Yes Status: Acute (2) Non-ischemic cardiomyopathy Current Visit: Yes Status: Chronic (3) SIRS (systemic inflammatory response syndrome) Current Visit: Yes Status: Resolved (4) Diabetic foot infection Current Visit: Yes Status: Acute (5) IDDM (insulin dependent diabetes mellitus) Current Visit: Yes Status: Acute (6) Diarrhea Current Visit: Yes Status: Acute - Summary of Assessment and Plan Summary of Assessment and Plan: Ms. Salter is a 48 year old with a history of IDDM, neuropathy, NICM with EF of 20% who was transferred to [place] from [facility] inpatient service. She was hospitalized the last few days with diabetic foot ulcer and cellulitis. Because of lack of improvement and concern for possible osteomyelitis, she was transferred for surgical intervention. She did have a bone scan there suggesting osteomyelitis. She has been stable on antibiotics and will go to the OR today for I and D and possible bone biopsy. -Bilateral lower extremity ulcers: - Patient denies pain, fever and chills - She is scheduled for surgery this afternoon - Continue Vanc and Zosyn - Further management will be based on intraop findings Diarrhea: resolved - Watery, non-bloody. No abdominal pain. Anxiety: - On celexa IDDM with hyperglycemia: - BG not controlled - Will institute perioperative Insulin management. Sepsis: - Met 3/4 criteria at presentation. - Continue antibiotics HFrEF S/P AICD: - EF 20/25%, mild MR, mild TR. - On Lasix 75 mg twice a day, continue to hold. Clinically euvolemic - Continue beta blockers. DVT: Heparin SCC BMAT +4. Disposition: continue inpatient. I reviewed independently all laboratory workup, pertinent images including x- rays and CT scans. I also reviewed independently and EKGs and my findings are in the body of my assessment and plan. I ordered the laboratory workup and images myself. I discussed finding with patient's, their families, RN's and consultants involved in the care of the patient. - Time Spent with Patient Total time spent is greater than 50% in coordination of care (as documented) at patient's floor/unit and/or counseling patient: Internal Medicine: Result - Labs CBC & Chem 7: 01/18/19 06:37 01/18/19 06:37 Labs: Short CBC 01/18/19 Range/Units 06:37 WBC 11.2 H (4.3-11.1) K/mcL Hgb 10.5 L (11.5-15.4) g/dL Hct 33.4 L (35.3-44.9) % Plt Count 374 (140-400) K/mcL BMP 01/18/19 06:37 Sodium 139 Potassium 3.7 Chloride 102 Carbon Dioxide 28 BUN 17 Creatinine 0.79 Glucose 194 H Calcium 8.7 - ABG Interpretation ABG results: PT/INR, D-dimer PT 13.2 Seconds (9.4-12.1) H 01/13/19 02:06 Consult Discharge Plan - Plan Referrals: Lucy Araya, DINING ROOM CASHIER [Primary Care Provider] - (6) Diarrhea Qualifiers: Diarrhea type: unspecified type Qualified Code(s): R19.7 - Diarrhea, unspecified
--- NOTE | 2019-01-18 19:11 | Anesthesia Evaluation PreOp ---
Date of Encounter: 01/18/19 Time of Encounter: 19:30 - Past History Planned Operation: Left Foot Incision Drainage Cardiac History: CHF, HTN, Hyperlipidemia, Other (Cardiomyopathy EF 25%) Pulmonary History: Denies Any Significant HX DEVELOPMENTAL ELECTRONICS ASSEMBLER History: Other (Neuropathy) Other Medical History: GERD, Other (Anxiety) Anesthesia History: No Prior Anesthetic Complications : No Alcohol Use: none Drug use: none Medications and Allergies Allopurinol [Zyloprim 100 MG] 100 mg PO BID 02/25/15 [History] Aspirin 325 mg PO DAILY 02/25/15 [History] Furosemide [Lasix] 80 mg PO BID 02/25/15 [History] Gabapentin [Neurontin] 400 mg PO TID 02/25/15 [History] Lisinopril [Zestril] 40 mg PO DAILY 02/25/15 [History] Metoprolol [Lopressor] 100 mg PO BID 02/25/15 [History] Buspirone HCl [Buspar] 10 mg PO TID 01/12/19 [History] Dulaglutide [Trulicity] 1.5 mg SQ HALL 01/12/19 [History] Insulin Degludec [Tresiba] 140 units SQ HS 01/12/19 [History] Insulin LISPRO [HumaLOG] 10 units SQ TIDWM 01/12/19 [History] Omeprazole [PriLOSEC] 40 mg PO DAILY 01/12/19 [History] Ondansetron ODT [Zofran ODT] 4 mg SL Q6HR PRN 01/12/19 [History] glipiZIDE [Glipizide] 10 mg PO DAILY 01/12/19 [History] Ergocalciferol (VITAMIN D2) [Vitamin D2] 50,000 unit PO HALL 01/14/19 [History] Ranitidine HCl [Zantac] 300 mg PO HS 01/14/19 [History] SitaGLIPtin [Januvia] 100 mg PO DAILY 01/14/19 [History] Spironolactone 50 mg PO DAILY 01/14/19 [History] Allergy/AdvReac Type Severity Reaction Status Date / Time codeine Allergy Hives Verified 01/13/19 21:14 - Meds/Allergy Pre-op Review Medications Reviewed: Yes Allergies Reviewed: Yes Beta Blockers on Current Med List: Yes (Metoprolol today) Anesthesia Results - Labs 01/18/19 06:37 01/18/19 06:37 - Imaging Additional studies: ECHO EF 25% Anesthesia Exam O2 Sat O2 Sat by Pulse Oximetry 94 O2 Sat by Pulse Oximetry 99 O2 Sat by Pulse Oximetry 95 O2 Sat by Pulse Oximetry 93 O2 Sat by Pulse Oximetry 92 Vital Signs Temp Pulse Resp BP Pulse Ox 102.2 F H 108 14 114/72 95 01/12/19 18:45 01/12/19 18:45 01/12/19 18:45 01/12/19 18:45 01/12/19 18:45 Height: 5'5 Weight: 255 lbs NPO (# of Hours): MN Pain Scale: 0 - HEENT Pupil (Motor): Pupils equal, EOMI Oral Opening: Less than or equal to 3 - DEVELOPMENTAL ELECTRONICS ASSEMBLER LOC: Oriented DEVELOPMENTAL ELECTRONICS ASSEMBLER Motor: Normal RUE, Normal LUE, Normal RLE, Normal LLE, Normal Face DEVELOPMENTAL ELECTRONICS ASSEMBLER Sensory: Normal: RUE, LUE, RLE, LLE, Face - Cardiac Rhythm: Regular Murmur: None JVD: No Carotid Bruit: No - Pulmonary Breath Sounds: bilateral Clear Respiratory Effort: Symmetrical Anesthesia Assess/Plan ASA Score: 4 (Cardiomyopathy) Level of consciousness: Cooperative, Oriented Anesthetic Plan: MAC Autologous Blood: No Monitoring Plan: Standard Monitors Recovery Plan: Other
[2019-01-18] MEDS ORDERED: *HR* FentaNYL (PF) 100 MCG/2 ML VIAL ONE (21:56)
[2019-01-18] MEDS ORDERED: ROPIVACAINE/PF/NS 0.25% 1 EACH SYRINGE INTRAART ONE (21:58)
[2019-01-18] MEDS ORDERED: *HR* Propofol 200 MG/20 ML VIAL IVP ONE (22:02)
[2019-01-18] MEDS ORDERED: Propofol 500 MG/50 ML INFUS..BTL ONE (22:27)
--- NOTE | 2019-01-18 22:48 | Orthopedic Operative Note ---
Date of procedure: 01/18/19 Pre-op diagnosis: #1: ulcer with abscess and infection left #1 MTP Post-op diagnosis: same Procedure: 01/18/19 22:46 #1: Incision and drainage and debridement multiple planes left foot #2: Application PuraPly antimicrobial wound matrix in PRP Implants: None Complications: None Anesthesia: MAC, local Local Anesthetics: Other (Ropivacaine plain) Surgeon: Osman Concepcion Was there an medical lab assistant present: No Estimated blood loss (cc): 10 Tourniquet Time (Minutes): 0 Specimen: Cultures aerobe and anaerobe left foot Condition: stable Disposition: PACU Procedure in Detail: 01/18/19 22:48 Details in summary of procedure. Patient was brought to surgical suite. Sign in procedure performed. Patient then transferred the surgical table and positioned properly safely securely. Left foot elevated on a foam block. Anesthetic timeout taken. Patient was sedated. Left ankle prepped with alcohol 3 times modified ankle block carried out with local anesthetic without complication. No tourniquet used left foot prepped and draped in usual sterile manner. Surgical timeout taken. Ulceration noted on the plantar aspect left first MTPJ measuring 3 cm in width and 2.5 in length and approximately 1.0 cm in depth with a tunnel tracking medially and dorsally to a phlegmon that ulcerated which measures 1.5 cm in length 2.0 cm in width and approximately 1.0 centimeters in depth. Approximately a 3 cm tunnel. A sterile hemostat was then placed within the tunnel an incision was made in the dorsal wound to the plantar wound. That juncture using a Metzenbaum scissor and pickup the wound was debrided surgically excised all nonviable tissue and multiple planes plantarly dorsally medially. There is undermining plantar wound distally for approximately 1.8 cm. No loculated abscesses noted. No purulent drainage. Debridement was undertaken multiple planes surgical excision of all nonviable tissue carried out. At that point a Ideapodonix ultrasonic debrider was used to again debride all devitalized tissue and irrigated the wound simultaneously. No complications ensued. The wound was noted to bleed freely without necessitating use of Bovie ligature. Complete debridement of all wounds completed. At that point tunnel was then sutured with interrupted sutures of 3-0 Prolene to create 2 separate wounds. That juncture a PuraPly antimicrobial wound matrix was cut to fit each wound wound was then sprayed with PRP and the graft was placed within the wound for contact. Remainder the wound was sprayed with platelet poor plasma a sterile Adaptic was applied, to the wound and dressed with sterile 4 x 4's and Kerlix and Medipore tape. Capillary rebound time is less than 3 seconds to all toes after application of dressing. Patient was then sent to PACU in good condition with vital signs stable to recover safely given her cardiac history. She tolerated the procedure the anesthesia well. No complications encountered. Estimated blood loss less than 10 mL.
--- NOTE | 2019-01-18 23:05 | Anesthesia Evaluation Post Op ---
Date of Encounter: 01/18/19 Time of Encounter: 23:05 - Vital Signs Vital Signs: Vital Signs/O2 Sat/Glucose, Most Current Temp Pulse Resp BP Pulse Ox 01/18/19 23:00 87 16 139/80 95 01/18/19 22:50 98.0 F 90 12 117/82 92 - Lungs Lungs: Clear Ascult./Percussion - Airway Airway: Non-obstructed - Cardiovascular Regular Rate - Mental Status Mental Status: Alert & Oriented, Answers Appropriately - Pain Pain Scale: 0 - Nausea Vomiting Nausea Vomiting: Not Present - Hydration Hydration: Ice chips - Discharge PostOp Status: Transfer Patient to floor
[2019-01-18] MEDS ORDERED: Ondansetron 4 MG/2 ML VIAL IVP PRN (23:30)
[2019-01-18] MEDS ORDERED: traMADol 50 MG TABLET PO PRN (23:30)
[2019-01-18] MEDS ORDERED: Ipratropium/Albuterol Neb 3 ML IH PRN (23:30)
[2019-01-18] MEDS ORDERED: Naloxone 0.4 MG/ML INJ IVP PRN (23:30)
[2019-01-18] MEDS ORDERED: Acetaminophen 325 MG TABLET PO PRN (23:30)
[2019-01-19] MEDS: Piperacillin/Tazobactam 3.375 GM in 0.9 % Sodium Chloride Mini Bag 100 ML IVPB SCH ×3 (00:29→16:29)
[2019-01-19] MEDS: *HR* Heparin 5,000 UNIT/ML VIAL SQ SCH ×2 (05:47→16:19)
[2019-01-19] MEDS: Gabapentin 400 MG CAPSULE PO SCH ×2 (09:00→16:20)
[2019-01-19] MEDS ORDERED: Metoprolol 100 MG TABLET PO SCH (09:00)
[2019-01-19] MEDS ORDERED: Furosemide 40 MG TABLET PO SCH (09:00)
[2019-01-19] MEDS: Insulin LISPRO 300 UNITS/3 ML VIAL SQ SCH ×6 (09:00→16:19)
[2019-01-19] MEDS ORDERED: Aspirin 325 MG TABLET PO SCH (09:00)
[2019-01-19] MEDS: Furosemide 40 MG TABLET PO SCH ×2 (09:00→16:20)
[2019-01-19] MEDS ORDERED: Gentamicin Oint 15 GM TUBE TP SCH (09:00)
--- NOTE | 2019-01-19 10:41 | Infectious Disease Progress No ---
ID Progress Note Date of Encounter: 01/19/19 Time of Encounter: 10:39 - Subjective Subjective: Patient seen and examined. No acute events noted overnight. Patient states overall she feels okay. Denies chest pain, shortness of breath, or cough. Denies nausea, vomiting, or constipation. States diarrhea is better and she is still having 3-4 bowel movements per day, one so far this morning. Denies abdominal pain or urinary complaints. States her appetite is good. Denies oral thrush or skin rashes. Reports mild pain at the surgical site. - Objective CBC & Chem 7: 01/18/19 06:37 01/18/19 06:37 - Exam Vitals: Temp Pulse Resp BP Pulse Ox 97.8 F 109 17 120/78 94 01/19/19 10:35 01/19/19 10:35 01/19/19 10:35 01/19/19 10:35 01/19/19 10:35 Exam: Head: Atraumatic, normal inspection, normocephalic. Eye: EOMI, PERRLA, no scleral icterus noted. ENT: Mucous membranes moist. No odontogenic infection noted. Neck: Normal inspection, no meningismus. Respiratory: Clear to auscultation. No rales, respiratory distress, rhonchi, or wheezes noted. Cardiovascular: Regular rate and rhythm, S1 and S2 audible. No murmurs, rubs, or gallops. GI: Soft, obese, normal bowel sounds. Non-tender Extremities:No joint swelling, pedal edema, or tenderness noted. BLE dressings C/D/I. Neurological: Alert, oriented 3, no focal deficits. Psychiatric: normal affect, normal mood. Skin: Dry, intact, warm. Normal color. No rashes. - Assessment and Plan (1) Sepsis Current Visit: Yes Status: Acute The patient had three SIRS criteria. Likely secondary to left foot infection. WBC up a little today. Tachycardia resolved. Afebrile. Blood cultures drawn 01/09/19 are negative x 2 sets. Repeat blood cultures drawn 01/12/19 are negative x 2 sets. Qualifiers: Sepsis type: sepsis due to unspecified organism Qualified Code(s): A41.9 - Sepsis, unspecified organism SNOMED Code(s): 50943283 (2) Osteomyelitis Current Visit: Yes Status: Suspected Suspected. Location: Tarsal bones left foot. Causative organism: E. cloacae, K. pneumoniae, amp-sensitive E. faecalis, and S. epi Repeat wound culture obtained here is positive for Klebsiella pneumoniae and Enterococcus faecalis (pansensitive). Bone scan completed at [facility] showed possible OM of several tarsal bones. X-ray of the left foot negative for osteomyelitis. ESR elevated at 90 with a CRP of 266. Podiatry consulted. Status post I & D left foot and application of PRP and Puraply graft 01/18/[address] Concepcion. Operative note reviewed. Intra-operative cultures are pending. No pathology specimens sent. Currently on Vanc and Zosyn. Qualifiers: Osteomyelitis type: acute hematogenous Osteomyelitis location: foot Laterality: left Qualified Code(s): M86.072 - Acute hematogenous osteomyelitis, left ankle and foot SNOMED Code(s): 04309701 (3) Diabetic foot infection Current Visit: Yes Status: Acute Location: Left foot. Causative organism: E. cloacae, K. pneumoniae, S. epi and E. faecalis. Repeat wound culture obtained here is positive for Klebsiella pneumonia and Enterococcus faecalis. Likely secondary to chronic diabetic foot ulcer. Bone scan concerning for OM, but x-ray negative. However, ESR and CRP very elevated. Podiatry consulted. Status post I & D 01/18/[address] Concepcion. Currently on Vanc and Zosyn. SNOMED Code(s): 795515454 (4) Non-ischemic cardiomyopathy Current Visit: Yes Status: Chronic Status post pacer/AICD. Follows with cardiology at OSH. SNOMED Code(s): 28980865 (5) Diabetes Current Visit: No Status: Chronic Blood sugars remain elevated. Recommend aggressive glucose monitoring and control to promote wound healing and prevent re-infection. Management per the primary team. Qualifiers: Diabetes mellitus type: type 2 Diabetes mellitus terminal carman insulin use: unspecified terminal carman insulin use status Diabetes mellitus complication status: without complication Qualified Code(s): E11.9 - Type 2 diabetes mellitus without complications SNOMED Code(s): 53936442 (6) HLD (hyperlipidemia) Current Visit: No Status: Chronic SNOMED Code(s): 03615482 (7) HTN (hypertension) Current Visit: No Status: Chronic Qualifiers: Hypertension type: essential hypertension Qualified Code(s): I10 - Essential (primary) hypertension SNOMED Code(s): 10110096 (8) ICD (implantable cardioverter-defibrillator) in place Current Visit: No Status: Chronic SNOMED Code(s): 543989830 (9) Obesity Current Visit: No Status: Chronic Qualifiers: Obesity type: unspecified obesity type SNOMED Code(s): 108044700, 528793132 (10) Diarrhea Current Visit: Yes Status: Acute Patient reports several loose, watery stools today. C. diff negative. Start probiotics. Qualifiers: Diarrhea type: unspecified type Qualified Code(s): R19.7 - Diarrhea, unspecified SNOMED Code(s): 91599377 - Recommendations Recommendations: Diabetes management per the primary team. Wound care and activity per the Podiatry team. Await intra-op cultures. Continue Vancomycin IV. Pharmacy to dose. Goal trough ~15. Discontinue Zosyn. Start Rocephin 2 grams IV daily. Start flagyl 500mg PO TID. Will avoid the use of fluoroquinolones given the patient's known history of cardiomyopathy, but monitor closely for regression due to Enterobacter having high rate of developing ampC resistance gene. Duration of treatment depends on the clinical picture. Although no obvious osteomyelitis noted intra-op given the extent of the infection and the very elevated ESR and CRP, the concern for OM remains high. Discussed with Podiatry. States no evidence of bone infection and wound did not probe to bone. Will plan to treat with PO Augmentin and Bactrim to complete a 2 week post-op course (through 01/31/19) and follow the patient in the office. Monitor renal function and for drug toxicity and dose-adjust antibiotics. guest services agent to assist with discharge planning. Get labs prior to OV: CBC, BUN/Cr, ESR, CRP. Follow up with ID 01/31/19 at 1540. Consult Discharge Plan - Plan Additional Instructions: Follow up in wound care center s/p d/c. LEFT FOOT: Do not change left foot dressing, leave in place until wound care appointment Do not get foot wet Wear orthowedge shoe at all times when ambulating to offload forefoot RIGHT FOOT: Wash with warm water and soap daily. Cover with calcium alginate, 4x4 dry gauze, and medipore tape Change dressing daily Wear surgical shoe when ambulating Referrals: Lucy Araya CNP [Primary Care Provider] - Melissa Daniels CNP [Advanced Practice Nurse] - 01/31/19 3:40 pm
--- NOTE | 2019-01-19 10:43 | Podiatry Progress Note ---
Date of Encounter: 01/19/19 Time of Encounter: 10:41 - Assessment and Plan (1) Diabetic foot infection Current Visit: Yes Status: Acute Assssment: Left foot: S/P Incision and drainage and debridement multiple planes left foot and application PuraPly antimicrobial wound matrix in PRP with Dr. Concepcion on 01/18/19 Erythema and edema noted to periwound, left foot, improved from previous No lymphangitis noted, left foot No bone was visualized during procedure, wound did not probe to bone, per Dr. Concepcion Right foot: Mantilla stage II ulceration right foot, appears stable No erythema, no edema, no cellulitis, no lymphangitis noted WBC 11.2, likely reactive from procedure ESR 90, CRP 266, A1C 13.4 3/4 PT/DP bilaterally Wound cultures returned klebsiella and enterococcus Anaerobic culture returned anaerobic gram negative rods Blood cultures pending, surgical cultures pending Plan: Bedside debridement of right foot ulcer, see below Continue IV ATB per ID recommendations- appreciate input Continue local wound care as ordered, do not change left foot dressing, provider change only Ortho wedge shoe ordered for left foot, bracing department notified Heel weight bearing left foot Surgical shoe ordered for right foot Follow up in wound care center with Dr. Concepcion 1 week s/p d/c. Please make appointment prior to d/c Social service consult for home care/IV atb Right foot: Verbal consent obtained timeout performed. Patient placed in recumbent position. Right foot and ankle prepped and draped usual manner. Under sterile technique and using sterile instrumentation surgical excisional wound debridement was carried out with #15 scalpel blade to remove all devitalized tissue of the plantar forefoot wound/1st submetatarsal right foot. No bleeding noted. Debridement was carried down to the subcutaneous tissue. Wound measurements 1 x 1 x 0.3 cm Cleansed with 0.9 NS, covered ulcer with adaptic, calcium alginate, 4x4 dry gauze and medipore tape Left foot: Cleansed with 0.9 NS, covered with adaptic, 4x4 dry gauze, kerlix, and medipore tape Impression: XR/XR foot 3V RT IMPRESSION: Soft tissue ulceration along the plantar aspect of the foot at the level of the 1st MTP joint with associated soft tissue swelling suggesting cellulitis. No soft tissue gas. No radiographic evidence of osteomyelitis. D/ / 01/13/2019 13:15:04 Tai Taylor MD / umang XR/XR foot 3V LT IMPRESSION: Soft tissue ulcer along the medial and plantar surface of the forefoot. Soft tissue swelling compatible with cellulitis. No radiographic findings of acute osteomyelitis. D/ / Grayson Soni MD / Grayson Soni MD Interpreting Provider: Grayson Soni MD R #: [id number] CT/CT foot LT wo con IMPRESSION: 1. Shallow soft tissue ulceration plantar to the 1st MTP joint with underlying cellulitis. No definite well-defined drainable fluid collection. 2. No CT evidence of osteomyelitis or other acute osseous abnormality. D/ / Nazario Villegas MD / Nazario Villegas MD Interpreting Provider: Nazario Villegas MD (2) IDDM (insulin dependent diabetes mellitus) Current Visit: Yes Status: Acute Assessment: HGB A1C 13.4 Plan: recommend tight glycemic control- primary managing recommend diabetic education/nutritional education Subjective Principal diagnosis: Bilateral diabetic foot ulcers Interval history: Patient awake in bed. Alert and oriented x 3. Denies any fevers, chills, nausea, vomiting, or diarrhea. Denies any calf pain, chest pain, or shortness of breath. Denies any acute overnight events. No other questions or concerns at this time Objective - Vital Signs Vital Signs: Vital Signs Temp Pulse Resp BP Pulse Ox 01/19/19 10:35 97.8 F 109 17 120/78 94 01/19/19 06:54 97.8 F 90 18 130/83 98 01/19/19 02:20 92 16 146/89 92 01/19/19 01:20 90 18 155/87 91 01/19/19 00:20 94 16 135/24 95 01/18/19 23:50 90 16 146/60 95 01/18/19 23:20 98.2 F 85 18 144/87 97 01/18/19 23:15 97.6 F 86 16 141/86 95 01/18/19 23:10 86 16 141/87 94 01/18/19 23:00 87 16 139/80 95 01/18/19 22:50 98.0 F 90 12 117/82 92 01/18/19 14:19 97.7 F 82 16 114/74 94 01/18/19 11:00 97.6 F 79 16 103/70 99 Intake and Output 01/18/19 01/19/19 01/19/19 23:59 07:59 15:59 Intake Total 0 / 1440 600 / 720 120 / 720 Output Total 5 / 5 0 / 0 0 / 0 Balance -5 / 1435 600 / 720 120 / 720 Intake: IV Fluids 600 / 600 Zosyn 3.375 GM In 0.9 % Sodium 100 / 100 Chloride (Mini-Bag +) 100 ML @ 25 mls/hr IVPB Q8HR GOMEZ Rx#: [id number] Vancocin 1,750 MG In 0.9 % 500 / 500 Sodium Chloride 500 ML @ 333. 333 mls/hr IVPB Q12H GOMEZ Rx#: [id number] Oral 0 / 240 120 / 120 Output: Urine 0 / 0 0 / 0 Estimated Blood Loss 5 Other: Meal Breakfast Percent of Meal Consumed 100% Weight 113.8 kg Blood Glucose* 122 213 Patient Weight 01/19/19 23:59 Weight 113.8 kg - Exam Exam: Constitiutional: Alert and oriented x 3. Well nourished. No acute distress noted Vascular: 3/4 DP/PT bilaterally, CFT <3 sec to all digits, warm to warm from tibia to toes bilaterally, no calf pain with squeeze BLE Neurologic: Absent sensation to touch, normal plantar response Dermatologic: Right mantilla grade II ulceration 1st submetatarsal, wound bed pink in color, left mantilla grade II ulceration 1st submetatarsal with phlagmon to left medial aspect of foot, s/p surgical debridement, closure of phlagmon noted, adaptic and puraply dressing in place, no active drainage noted, erythema and edema noted, no lymphangitis noted Musculoskeletal: 5/5 muscle strength and normal tone bilaterally. - Lab Result Diagrams: 01/18/19 06:37 01/18/19 06:37 Labs: Abnormal lab results WBC 11.2 K/mcL (4.3-11.1) H 01/18/19 06:37 RBC 3.57 M/mcL (3.82-4.97) L 01/16/19 06:07 Hgb 10.5 g/dL (11.5-15.4) L 01/18/19 06:37 Hct 33.4 % (35.3-44.9) L 01/18/19 06:37 MCH 27.3 pg (28.0-33.3) L 01/18/19 06:37 MCHC 31.4 g/dL (31.6-35.5) L 01/18/19 06:37 Neutrophils # 9.9 K/mcL (1.6-8.9) H 01/13/19 02:06 ESR 90 mm/hr (0-15) H 01/13/19 02:06 PT 13.2 Seconds (9.4-12.1) H 01/13/19 02:06 Sodium 135 mEq/L (136-145) L 01/16/19 06:07 Chloride 97 mEq/L (98-107) L 01/13/19 02:07 BUN 24 mg/dL (6-20) H 01/12/19 19:28 Glucose 194 mg/dL (70-105) H 01/18/19 06:37 POC Glucose 122 mg/dL (70-99) H 01/18/19 23:51 Hemoglobin A1c 13.4 % (-5.6) H 01/13/19 02:06 Calcium 8.0 mg/dL (8.6-10.3) L 01/13/19 02:07 AST 7 Units/L (13-39) L 01/13/19 02:07 C-Reactive Protein 266 mg/L (Less than 10) H 01/13/19 02:07 Albumin 3.0 g/dL (3.5-5.7) L 01/13/19 02:07 Albumin/Globulin Ratio 0.9 (1.1-2.2) L 01/13/19 02:07 Vancomycin Trough 15 mcg/mL (5-10) H 01/17/19 10:53 Microbiology, Last 48 Hours 01/18/19 22:19 Wound Culture - Preliminary Left Foot Culture is incubating. 01/18/19 22:19 Anaerobic Culture - Preliminary Left Foot Culture is incubating. 01/13/19 10:00 Anaerobic Culture - Preliminary Left Foot Anaerobic Gram Negative Jorge 01/12/19 19:28 Blood Culture - Final Peripheral Venipuncture No growth. Final report. 01/12/19 19:37 Blood Culture - Final Peripheral Venipuncture No growth. Final report. Consult Discharge Plan - Plan Additional Instructions: Follow up in wound care center s/p d/c. LEFT FOOT: Do not change left foot dressing, leave in place until wound care appointment Do not get foot wet Wear orthowedge shoe at all times when ambulating to offload forefoot RIGHT FOOT: Wash with warm water and soap daily. Cover with calcium alginate, 4x4 dry gauze, and medipore tape Change dressing daily Wear surgical shoe when ambulating Referrals: Lucy Araya CNP [Primary Care Provider] -
[2019-01-19 15:12] VITALS: BP 101/64
--- NOTE | 2019-01-19 16:54 | Discharge Summary ---
- NOTES TO OUTPATIENT PROVIDER Notes to Outpatient Provider: to follow up with ID on 01/31. Patietn on Bactrim and Spironolactone. Please check potassium level in a wek. Orders not resulted at time of discharge: Pending orders 01/18/19 13:07 Test Result, Urine [URIN] Stat 01/18/19 22:19 Culture,Anaerobic [RM] Routine Culture,Wound [RM] Routine 01/20/19 04:00 BMP [Basic Metabolic Panel] AM 0400 Date of Encounter: 01/19/19 Time of Encounter: 08:35 - Discharge Diagnosis (1) Diabetic foot infection Priority: Primary Status: Acute (2) DVT prophylaxis Priority: Secondary Status: Acute (3) Non-ischemic cardiomyopathy Priority: Secondary Status: Chronic (4) SIRS (systemic inflammatory response syndrome) Priority: Secondary Status: Resolved (5) IDDM (insulin dependent diabetes mellitus) Priority: Secondary Status: Chronic (6) Diarrhea Priority: Secondary Status: Resolved Qualifiers: Diarrhea type: unspecified type Qualified Code(s): R19.7 - Diarrhea, unspecified Hospital course: Ms. Salter is a 48 year old female with a history of IDDM, neuropathy, NICM with EF of 20% who was transferred to [place] from [facility] inpatient service. She was hospitalized the last few days with diabetic foot ulcer and cellulitis. Because of lack of improvement and concern for possible osteomyelitis, she was transferred for surgical intervention. She did have a bone scan there suggesting osteomyelitis. I and D and debridement was completed uneventfully. She will be discharged to home health care and oral antibiotics - Time Spent with Patient Total time spent providing and/or coordinating discharge services: - Discharge Medications Prescriptions: New Amoxicillin/Clavulanate [Augmentin] 875 mg PO BIDWM 14 Days #28 tablet Sulfamethoxazole/Trimeth DS [Bactrim DS] 1 each PO BID 14 Days #28 tablet Gentamicin Oint [Garamycin] 1 appl TP DAILY tube Collagenase Oint [Santyl] 1 appl TP DAILY tube Continued Metoprolol [Lopressor] 100 mg PO BID Gabapentin [Neurontin] 400 mg PO TID Lisinopril [Zestril] 40 mg PO DAILY Furosemide [Lasix] 80 mg PO BID Aspirin 325 mg PO DAILY Allopurinol [Zyloprim 100 MG] 100 mg PO BID Dulaglutide [Trulicity] 1.5 mg SQ HALL Buspirone HCl [Buspar] 10 mg PO TID Insulin Degludec [Tresiba] 140 units SQ HS Ondansetron ODT [Zofran ODT] 4 mg SL Q6HR PRN PRN Reason: Nausea Omeprazole [PriLOSEC] 40 mg PO DAILY glipiZIDE [Glipizide] 10 mg PO DAILY Insulin LISPRO [HumaLOG] 10 units SQ TIDWM SitaGLIPtin [Januvia] 100 mg PO DAILY Spironolactone 50 mg PO DAILY Ergocalciferol (VITAMIN D2) [Vitamin D2] 50,000 unit PO HALL Discontinued Ranitidine HCl [Zantac] 300 mg PO HS Home Medications: Allopurinol [Zyloprim 100 MG] 100 mg PO BID 02/25/15 [History] Aspirin 325 mg PO DAILY 02/25/15 [History] Furosemide [Lasix] 80 mg PO BID 02/25/15 [History] Gabapentin [Neurontin] 400 mg PO TID 02/25/15 [History] Lisinopril [Zestril] 40 mg PO DAILY 02/25/15 [History] Metoprolol [Lopressor] 100 mg PO BID 02/25/15 [History] Buspirone HCl [Buspar] 10 mg PO TID 01/12/19 [History] Dulaglutide [Trulicity] 1.5 mg SQ HALL 01/12/19 [History] Insulin Degludec [Tresiba] 140 units SQ HS 01/12/19 [History] Insulin LISPRO [HumaLOG] 10 units SQ TIDWM 01/12/19 [History] Omeprazole [PriLOSEC] 40 mg PO DAILY 01/12/19 [History] Ondansetron ODT [Zofran ODT] 4 mg SL Q6HR PRN 01/12/19 [History] glipiZIDE [Glipizide] 10 mg PO DAILY 01/12/19 [History] Ergocalciferol (VITAMIN D2) [Vitamin D2] 50,000 unit PO HALL 01/14/19 [History] SitaGLIPtin [Januvia] 100 mg PO DAILY 01/14/19 [History] Spironolactone 50 mg PO DAILY 01/14/19 [History] Amoxicillin/Clavulanate [Augmentin] 875 mg PO BIDWM 14 Days #28 tablet 01/19/19 [Rx] Collagenase Oint [Santyl] 1 appl TP DAILY tube 01/19/19 [Rx] Gentamicin Oint [Garamycin] 1 appl TP DAILY tube 01/19/19 [Rx] Sulfamethoxazole/Trimeth DS [Bactrim DS] 1 each PO BID 14 Days #28 tablet 01/19/19 [Rx] Allergies/Adverse Reactions: Allergy/AdvReac Type Severity Reaction Status Date / Time codeine Allergy Hives Verified 01/13/19 21:14 Date of admission: 01/12/19 18:14 Primary care physician: Lucy Araya CNP Consults: 01/12/19 18:32 Consult to Pastoral Services [CONS] Routine Comment: Consult to Waistband Setter [CONS] Routine Reason for SW Consult: Diabetic ulcers, possible IV Antibiotics 01/12/19 22:16 Consult to Physician [CONS] Routine Consulting Provider: Dedrick Hamilton Reason for Consult: DFU/osteoyelitis Time Notified: 22:17 Call Completed: Yes 01/13/19 08:11 Consult to Infectious Diseases [CONS] Routine Consulting Provider: Infectious Disease Elda Reason for Consult: diabetic foot ulcer, abx recommendation Call Completed: No - Constitutional Vitals: Temp Pulse Resp BP Pulse Ox 36.4 C 82 17 101/64 96 01/19/19 14:48 01/19/19 14:48 01/19/19 14:48 01/19/19 14:48 01/19/19 14:48 General appearance: Present: cooperative, mild distress, A&O X 3, pleasant, answers questions appropriately Exam: GENERAL: Not in distress. Alert and Oriented HEENT: EOMI, PERRLA MOUTH: Good oral hygiene NECK:No JVD, No lymph nodes. CHEST AND LUNGS: Normal breath sounds, no wheezes or crackles HEART: S1 and S2 normal, no murmurs ABDOMEN: Soft, nontender, no organomegaly GENITOURINARY: SKIN: Normal color, no rahses, no lesions EXTREMITIES: Has clean surgical on both feet. Left foot is entirely wrapped. Right side of sole of right foot is covered with dressing. NEUROLOGICAL: Normal cognition, normal motor and sensory exam. - Patient Status Disposition: Home Health Service Condition: Good Functional capacity at discharge: uses cane/walker Overall status at discharge: patient is progressing back to baseline - Ambulatory Orders Ambulatory Orders: Blood Urea Nitrogen (BUN) [CHEM] Time Frame: 2 Weeks, Facility: [facility], Location: Lab C-Reactive Protein [CHEM] Time Frame: 2 Weeks, Facility: [facility], Location: Lab Complete Blood Count [HEME] Time Frame: 2 Weeks, Facility: [facility], Location: Lab Creatinine [CHEM] Time Frame: 2 Weeks, Facility: [facility], Location: Lab Erythrocyte Sedimentation Rate [HEME] Time Frame: 2 Weeks, Facility: [facility], Location: Lab - Discharge Instructions Follow Up With: Melissa Daniels CNP [Advanced Practice Nurse] - 01/31/19 3:40 pm Lucy Araya CNP [Primary Care Provider] - Additional Instructions: Follow up in wound care center s/p d/c. LEFT FOOT: Do not change left foot dressing, leave in place until wound care appointment Do not get foot wet Wear orthowedge shoe at all times when ambulating to offload forefoot RIGHT FOOT: Wash with warm water and soap daily. Cover with calcium alginate, 4x4 dry gauze, and medipore tape Change dressing daily Wear surgical shoe when ambulating - Diet and Activity Activity: increase activity as tolerated Diet: diabetic diet
[2019-01-19] MEDS ORDERED: cefTRIAXone 2,000 MG in Water for inj. (sterile) 20 ML IVPB SCH (17:00)
[2019-01-19] MEDS: metroNIDAZOLE 500 MG TABLET PO SCH ×2 (17:21→17:22)
[2019-01-19] MEDS ORDERED: Aminoglycoside Consult 1 EACH MC ONE (19:08)
[2019-01-19] MEDS ORDERED: Insulin LISPRO 300 UNITS/3 ML VIAL SQ SCH ×2 (21:00)
[2019-01-19] MEDS ORDERED: Insulin DETEMIR 100 UNIT/ML X5UNITS SQ SCH (21:00)
[2019-01-19] MEDS ORDERED: Famotidine 20 MG TABLET PO SCH (21:00)
== END 2019-01-19 19:09 | disposition home health service (06) | DRG 854 ==
LOC: SUATTDRO 18:14 → 3ANU 18:14
PROVIDERS: ADMIT Internal Medicine; ATTEND Internal Medicine

== ENCOUNTER 2020-06-27 08:21 | Observation (INO) ==
[2020-06-27] MEDS ORDERED: Ipratropium/Albuterol Neb 3 ML IH ONE (08:53)
[2020-06-27 09:10] LABS: Basophils % 0.4 %; Eosinophils # 0.2 K/mcL (0.0-0.6); Eosinophils % 2.5 %; Hemoglobin 10.7 g/dL (11.5-15.4); Immature Granulocytes % 0.6 % (0-4); Lymphocytes # 1.5 K/mcL (0.6-4.6); Lymphocytes % 18.5 %; Mean Corpuscular HGB Conc 29.7 g/dL (31.6-35.5); Mean Corpuscular Hemoglobin 26.9 pg (28.0-33.3); Mean Corpuscular Volume 90.5 fL (83.0-100.0); Mean Platelet Volume 11.2 fL (9.4-12.4); Monocytes # 0.4 K/mcL (0.0-1.3); Neutrophils # 6.1 K/mcL (1.6-8.9); Nucleated Red Blood Cells 0.5 /100 WBC (0); Platelet Count 256 K/mcL (140-400); Red Blood Count 3.98 M/mcL (3.82-4.97); Red Cell Distribution Width 18.9 % (11.5-14.5); White Blood Count 8.3 K/mcL (4.3-11.1)
[2020-06-27 09:34] LABS: BUN/Creatinine Ratio 26 (6-26); Blood Urea Nitrogen 29 mg/dL (6-20); Calcium 8.7 mg/dL (8.6-10.3); Carbon Dioxide 25 mEq/L (23-29); Chloride 108 mEq/L (98-107); Glucose 113 mg/dL (70-105); Osmolality,Calculated 295 (280-300); Potassium 4.9 mEq/L (3.5-5.1); Sodium 139 mEq/L (136-145); eGFR For African Americans > 60 (> 60); eGFR For Non-African Americans 52 (> 60)
[2020-06-27] MEDS ORDERED: Furosemide 40 MG/4 ML VIAL IVP ONE (09:44)
[2020-06-27] MEDS ORDERED: Aspirin 81 MG TAB.CHEW PO SCH (12:45)
[2020-06-27] MEDS ORDERED: Naloxone 0.4 MG/ML INJ IVP PRN (13:03)
[2020-06-27] MEDS ORDERED: Perflutren Lipid Microsphere 1.3 ML in 0.9 % Sodium Chloride 8.7 ML IVP PRN (13:11)
[2020-06-27] MEDS ORDERED: D5% in Water 1,000 ML IVC PRN (13:15)
[2020-06-27] MEDS ORDERED: Dextrose Gel 15 GM/37.5 ML TUBE PO PRN ×2 (13:15)
[2020-06-27] MEDS ORDERED: *HR* Dextrose 50 % in Water (Vial) 50 ML VIAL IVP PRN (13:15)
[2020-06-27 14:40] LABS: Adenovirus Not Detected (Not Detect); Bordetella Pertussis Not Detected (Not Detect); Chlamydophila pneumoniae Not Detected (Not Detect); Coronavirus 229E Not Detected (Not Detect); Coronavirus HKU1 Not Detected (Not Detect); Coronavirus NL63 Not Detected (Not Detect); Coronavirus OC43 Not Detected (Not Detect); Human Metapneumovirus Not Detected (Not Detect); Human Rhinovirus/Enterovirus DETECTED (Not Detect); Influenza A Subtype 2009 H1 Not Detected (Not Detect); Influenza B Not Detected (Not Detect); Mycoplasma pneumoniae Not Detected (Not Detect); Parainfluenza Virus 1 Not Detected (Not Detect); Parainfluenza Virus 2 Not Detected (Not Detect); Parainfluenza Virus 3 Not Detected (Not Detect); Parainfluenza Virus 4 Not Detected (Not Detect); Respiratory Syncytial Virus Not Detected (Not Detect); SARS-CoV-2 Not Detected (Not Detect)
[2020-06-27] MEDS ORDERED: Ipratropium/Albuterol Neb 3 ML IH PRN (14:47)
[2020-06-27] MEDS: Insulin LISPRO 300 UNITS/3 ML VIAL SUBQ SCH ×3 (15:59→21:16)
[2020-06-27] MEDS: Furosemide 40 MG/4 ML VIAL IVP SCH (16:23)
[2020-06-27] MEDS: *HR* Heparin 5,000 UNIT/ML VIAL SQ SCH (16:23)
[2020-06-27] MEDS ORDERED: Metoprolol 100 MG TABLET PO SCH (21:00)
[2020-06-28 00:58] LABS: Basophils # 0.1 K/mcL (0.0-0.2); Basophils % 0.6 %; Eosinophils # 0.3 K/mcL (0.0-0.6); Eosinophils % 3.9 %; Hematocrit 35.5 % (35.3-44.9); Hemoglobin 10.8 g/dL (11.5-15.4); Immature Granulocytes % 0.5 % (0-4); Lymphocytes # 1.8 K/mcL (0.6-4.6); Lymphocytes % 21.2 %; Mean Corpuscular HGB Conc 30.4 g/dL (31.6-35.5); Mean Corpuscular Hemoglobin 27.1 pg (28.0-33.3); Mean Corpuscular Volume 89.2 fL (83.0-100.0); Monocytes # 0.5 K/mcL (0.0-1.3); Monocytes % 5.8 %; Neutrophils # 5.8 K/mcL (1.6-8.9); Nucleated Red Blood Cells 0.4 /100 WBC (0); Platelet Count 264 K/mcL (140-400); Red Blood Count 3.98 M/mcL (3.82-4.97); Red Cell Distribution Width 18.9 % (11.5-14.5); White Blood Count 8.6 K/mcL (4.3-11.1)
[2020-06-28 01:17] LABS: Calcium 8.5 mg/dL (8.6-10.3); Chol/HDL Ratio 3.3 (0-4.9); Magnesium 2.2 mg/dL (1.6-2.6); Phosphorous 4.9 mg/dL (2.7-4.5); Potassium 3.9 mEq/L (3.5-5.1)
[2020-06-28 01:18] LABS: % Iron Saturation 12 % (15-50); Iron 46 mcg/dL (50-170); Transferrin 264 mg/dL (203-362)
[2020-06-28 01:36] LABS: Ferritin 77 ng/mL (10-120)
[2020-06-28 01:41] LABS: Folate 10.4 ng/mL (3.0-16.0)
[2020-06-28] MEDS: *HR* Heparin 5,000 UNIT/ML VIAL SQ SCH ×2 (05:17→16:35)
[2020-06-28 07:41] LABS: Estimated Average Glucose 237 mg/dl; Hemoglobin A1C 9.9 %
[2020-06-28] MEDS: Insulin LISPRO 300 UNITS/3 ML VIAL SUBQ SCH ×4 (08:04→20:10)
[2020-06-28] MEDS: Aspirin 81 MG TAB.CHEW PO SCH (08:58)
[2020-06-28] MEDS: Furosemide 40 MG/4 ML VIAL IVP SCH ×3 (08:58→20:40)
[2020-06-28] MEDS ORDERED: Metoprolol XL (24 HR) Succ 50 MG TAB.ER.24H PO SCH (09:00)
[2020-06-28] MEDS ORDERED: lisinopriL 20 MG TABLET PO SCH (09:00)
[2020-06-28] MEDS ORDERED: Furosemide 40 MG/4 ML VIAL IVP ONE (13:22)
[2020-06-28] MEDS ORDERED: Iron Sucrose Complex 400 MG in 0.9 % Sodium Chloride 250 ML IVPB ONE (13:33)
[2020-06-28] MEDS ORDERED: Benzonatate 100 MG CAPSULE PO PRN (13:37)
[2020-06-28] MEDS: Albumin 25% 25gram/100mL 25 GM/100 ML IV.SOLN IVPB SCH (14:05)
[2020-06-28] MEDS: Gabapentin 400 MG CAPSULE PO SCH (14:05)
[2020-06-28] MEDS: Metoprolol XL (24 HR) Succ 50 MG TAB.ER.24H PO SCH (20:40)
[2020-06-28] MEDS ORDERED: Gabapentin 400 MG CAPSULE PO SCH (21:00)
[2020-06-28] MEDS ORDERED: Insulin DETEMIR 100 UNIT/ML X5UNITS SUBQ SCH (21:00)
[2020-06-29] MEDS: Albumin 25% 25gram/100mL 25 GM/100 ML IV.SOLN IVPB SCH ×2 (00:23→07:56)
[2020-06-29] MEDS: *HR* Heparin 5,000 UNIT/ML VIAL SQ SCH (05:41)
[2020-06-29 06:45] LABS: Basophils % 0.4 %; Eosinophils # 0.2 K/mcL (0.0-0.6); Eosinophils % 2.9 %; Hematocrit 36.6 % (35.3-44.9); Hemoglobin 10.7 g/dL (11.5-15.4); Immature Granulocytes % 0.7 % (0-4); Lymphocytes # 1.4 K/mcL (0.6-4.6); Lymphocytes % 18.5 %; Mean Corpuscular HGB Conc 29.2 g/dL (31.6-35.5); Mean Corpuscular Hemoglobin 26.6 pg (28.0-33.3); Mean Corpuscular Volume 90.8 fL (83.0-100.0); Mean Platelet Volume 11.2 fL (9.4-12.4); Monocytes # 0.6 K/mcL (0.0-1.3); Monocytes % 7.4 %; Neutrophils # 5.4 K/mcL (1.6-8.9); Platelet Count 250 K/mcL (140-400); Red Blood Count 4.03 M/mcL (3.82-4.97); Red Cell Distribution Width 19.1 % (11.5-14.5); Segmented Neutrophils % 70.1 %; White Blood Count 7.7 K/mcL (4.3-11.1)
[2020-06-29 07:05] LABS: Alanine Aminotransferase 31 Units/L (7-52); Albumin 3.8 g/dL (3.5-5.7); Albumin/Globulin Ratio 1.1 (1.1-2.2); Alkaline Phosphatase 63 Units/L (34-104); Aspartate Amino Transferase 20 Units/L (13-39); BUN/Creatinine Ratio 37 (6-26); Bilirubin,Total 1.2 mg/dL (0.3-1.0); Blood Urea Nitrogen 40 mg/dL (6-20); Calcium 8.7 mg/dL (8.6-10.3); Carbon Dioxide 29 mEq/L (23-29); Chloride 102 mEq/L (98-107); Globulin 3.4 g/dL (2.4-3.5); Glucose 115 mg/dL (70-105); Magnesium 2.4 mg/dL (1.6-2.6); Osmolality,Calculated 295 (280-300); Potassium 3.9 mEq/L (3.5-5.1); Sodium 137 mEq/L (136-145); Total Protein 7.2 g/dL (6.4-8.9); eGFR For African Americans > 60 (> 60); eGFR For Non-African Americans 53 (> 60)
[2020-06-29] MEDS: Insulin LISPRO 300 UNITS/3 ML VIAL SUBQ SCH ×2 (07:41→13:07)
[2020-06-29] MEDS: Gabapentin 400 MG CAPSULE PO SCH (07:56)
[2020-06-29] MEDS: Metoprolol XL (24 HR) Succ 50 MG TAB.ER.24H PO SCH (07:56)
[2020-06-29] MEDS: Aspirin 81 MG TAB.CHEW PO SCH (07:56)
[2020-06-29] MEDS ORDERED: lisinopriL 20 MG TABLET PO SCH (09:00)
[2020-06-29] MEDS ORDERED: allopurinoL 100 MG TABLET PO SCH (09:00)
[2020-06-29 11:06] VITALS: BP 111/72
[2020-06-29] MEDS: Furosemide 40 MG/4 ML VIAL IVP SCH (13:07)
== END 2020-06-29 13:16 | disposition home or self-care (01) ==
LOC: EMEROOARM 08:21 → 2ANU 08:21 → SUATTDRO 14:14 → 2ANU 15:31
PROVIDERS: ADMIT Student in an Organized Health Care Education/Training Program; ATTEND Internal Medicine

== ENCOUNTER 2020-09-22 17:03 | Inpatient (IN) ==
[2020-09-22] MEDS ORDERED: Naloxone 0.4 MG/ML INJ IVP PRN (20:12)
[2020-09-22] MEDS ORDERED: Melatonin 3 MG TABLET PO PRN (20:12)
[2020-09-22] MEDS ORDERED: Acetaminophen 325 MG TABLET PO PRN (20:12)
[2020-09-22] MEDS ORDERED: Ondansetron 4 MG/2 ML VIAL IVP PRN (20:12)
[2020-09-22] MEDS ORDERED: *HR* Dextrose 50 % in Water (Vial) 50 ML VIAL IVP PRN (20:26)
[2020-09-22] MEDS ORDERED: D5% in Water 1,000 ML IVC PRN (20:26)
[2020-09-22] MEDS ORDERED: Dextrose Gel 15 GM/37.5 ML TUBE PO PRN ×2 (20:26)
[2020-09-22] MEDS ORDERED: Ketorolac 30 MG/ML VIAL IVP PRN (21:13)
[2020-09-23] MEDS: Piperacillin/Tazobactam 3.375 GM in 0.9 % Sodium Chloride Mini Bag 100 ML IVPB SCH ×3 (00:13→16:44)
[2020-09-23] MEDS: Insulin LISPRO 300 UNITS/3 ML VIAL SUBQ SCH ×4 (00:18→15:52)
[2020-09-23 05:47] LABS: Basophils % 0.4 %; Eosinophils # 0.2 K/mcL (0.0-0.6); Eosinophils % 1.8 %; Hemoglobin 10.7 g/dL (11.5-15.4); Immature Granulocytes % 0.6 % (0-4); Lymphocytes % 10.8 %; Mean Corpuscular HGB Conc 30.6 g/dL (31.6-35.5); Mean Corpuscular Hemoglobin 26.7 pg (28.0-33.3); Mean Corpuscular Volume 87.3 fL (83.0-100.0); Mean Platelet Volume 11.4 fL (9.4-12.4); Monocytes # 0.7 K/mcL (0.0-1.3); Monocytes % 7.7 %; Neutrophils # 7.4 K/mcL (1.6-8.9); Platelet Count 169 K/mcL (140-400); Red Blood Count 4.01 M/mcL (3.82-4.97); Red Cell Distribution Width 17.3 % (11.5-14.5); Segmented Neutrophils % 78.7 %; White Blood Count 9.4 K/mcL (4.3-11.1)
[2020-09-23] MEDS: *HR* Heparin 5,000 UNIT/ML VIAL SQ SCH ×2 (06:58→15:52)
[2020-09-23 07:05] LABS: INR 1.3; Prothrombin Time 14.8 Seconds (9.4-12.1)
[2020-09-23 07:07] LABS: Activated Partial Thrombo Time 24.5 Seconds (26.0-36.0)
[2020-09-23 07:42] LABS: Alanine Aminotransferase 8 Units/L (7-52); Albumin 3.2 g/dL (3.5-5.7); Albumin/Globulin Ratio 0.9 (1.1-2.2); Alkaline Phosphatase 56 Units/L (34-104); Aspartate Amino Transferase 8 Units/L (13-39); BUN/Creatinine Ratio 26 (6-26); Blood Urea Nitrogen 25 mg/dL (6-20); Calcium 8.4 mg/dL (8.6-10.3); Carbon Dioxide 26 mEq/L (23-29); Chloride 103 mEq/L (98-107); Globulin 3.7 g/dL (2.4-3.5); Glucose 198 mg/dL (70-105); Magnesium 2.2 mg/dL (1.6-2.6); Osmolality,Calculated 290 (280-300); Phosphorous 3.2 mg/dL (2.7-4.5); Potassium 3.7 mEq/L (3.5-5.1); Sodium 135 mEq/L (136-145); Total Protein 6.9 g/dL (6.4-8.9); eGFR For African Americans > 60 (> 60); eGFR For Non-African Americans > 60 (> 60)
[2020-09-23] MEDS: Vancomycin 1,750 MG/517.5 ML IV.SOLN IVPB SCH ×2 (09:18→19:47)
[2020-09-23 10:28] LABS: C-Reactive Protein 242 mg/L (Less than 10)
[2020-09-23 11:36] LABS: Estimated Average Glucose 292 mg/dl; Hemoglobin A1C 11.8 %
[2020-09-23] MEDS ORDERED: *HR* HYDROcodone/Acet 5/325 mg TABLET PO PRN (13:22)
[2020-09-23] MEDS ORDERED: Gadolinium Contrast Agent (WT Based) IV PRN (13:42)
[2020-09-23] MEDS ORDERED: Isovue-370 500 ML BOTTLE IVP ONE (14:07)
[2020-09-23] MEDS: Sucralfate 1 GM TABLET PO SCH ×2 (15:52→20:40)
[2020-09-23] MEDS: Furosemide 40 MG TABLET PO SCH (15:52)
[2020-09-23] MEDS: Metoprolol 100 MG TABLET PO SCH (19:48)
[2020-09-23 21:50] LABS: Bilirubin,Urine Negative (Negative); Blood,Urine Trace (Negative); Budding Yeast,Urine Few per hpf (None Seen); Clarity,Urine Clear (Clear); Color,Urine Yellow (Yellow); Glucose,Urine (UA) Normal (Normal); Ketones,Urine Negative (Negative); Leukocyte Esterase,Urine Negative (Negative); Nitrite,Urine Negative (Negative); Protein,Urine 50 mg/dL (Neg-Trace); Specific Gravity,Urine > 1.030 (1.010-1.025); Squamous Epithelial Cell,Urine Few per hpf (None-Few); Urobilinogen,Urine Normal (Normal)
[2020-09-24] MEDS: Piperacillin/Tazobactam 3.375 GM in 0.9 % Sodium Chloride Mini Bag 100 ML IVPB SCH ×3 (00:01→17:38)
[2020-09-24] MEDS: Insulin LISPRO 300 UNITS/3 ML VIAL SUBQ SCH ×3 (00:08→11:59)
[2020-09-24] MEDS: *HR* Heparin 5,000 UNIT/ML VIAL SQ SCH ×2 (05:53→16:42)
[2020-09-24] MEDS ORDERED: Aspirin 81 MG TAB.CHEW PO SCH (09:00)
[2020-09-24] MEDS ORDERED: lisinopriL 20 MG TABLET PO SCH (09:00)
[2020-09-24] MEDS ORDERED: allopurinoL 100 MG TABLET PO SCH (09:00)
[2020-09-24] MEDS ORDERED: Famotidine 20 MG TABLET PO SCH (09:00)
[2020-09-24] MEDS ORDERED: Vancomycin 1,250 MG/262.5 ML IV.SOLN IVPB SCH (09:00)
[2020-09-24] MEDS: Furosemide 40 MG TABLET PO SCH ×2 (10:22→16:42)
[2020-09-24] MEDS: Metoprolol 100 MG TABLET PO SCH ×2 (10:30→20:41)
[2020-09-24] MEDS: Sucralfate 1 GM TABLET PO SCH ×4 (10:42→20:53)
[2020-09-24] MEDS ORDERED: *HR* FentaNYL (PF) 100 MCG/2 ML VIAL ONE ×2 (13:12→17:16)
[2020-09-24] MEDS ORDERED: Lidocaine -MPF 2% 2 ML VIAL ONE ×2 (13:12→17:20)
[2020-09-24] MEDS ORDERED: *HR* Midazolam HCl 2 MG/2 ML VIAL ONE (17:16)
[2020-09-24] MEDS ORDERED: *HR* PHENYLEPHRINE 1,000 MCG/10 ML SYRINGE IVP ONE (18:00)
[2020-09-24] MEDS ORDERED: Ondansetron 4 MG/2 ML VIAL ONE (18:01)
[2020-09-24] MEDS ORDERED: Bupivacaine/Clonidine Syringe 20 ML, Syringe LUER-LOK 1 EACH TP ONE (18:25)
[2020-09-24] MEDS ORDERED: Ondansetron 4 MG/2 ML VIAL IVP PRN (19:35)
[2020-09-24] MEDS ORDERED: Dextrose Gel 15 GM/37.5 ML TUBE PO PRN ×2 (19:35)
[2020-09-24] MEDS ORDERED: D5% in Water 1,000 ML IVC PRN (19:35)
[2020-09-24] MEDS ORDERED: Naloxone 0.4 MG/ML INJ IVP PRN (19:35)
[2020-09-24] MEDS ORDERED: *HR* Dextrose 50 % in Water (Vial) 50 ML VIAL IVP PRN (19:35)
[2020-09-24] MEDS ORDERED: Gadolinium Contrast Agent (WT Based) IV PRN (19:35)
[2020-09-24] MEDS ORDERED: Melatonin 3 MG TABLET PO PRN (19:35)
[2020-09-24] MEDS ORDERED: Acetaminophen 325 MG TABLET PO PRN (19:35)
[2020-09-24] MEDS: Vancomycin 1,250 MG/262.5 ML IV.SOLN IVPB SCH (21:26)
[2020-09-25] MEDS: *HR* HYDROcodone/Acet 5/325 mg TABLET PO PRN ×2 (00:56→12:13)
[2020-09-25] MEDS: Piperacillin/Tazobactam 3.375 GM in 0.9 % Sodium Chloride Mini Bag 100 ML IVPB SCH ×4 (00:56→23:22)
[2020-09-25] MEDS: Insulin LISPRO 300 UNITS/3 ML VIAL SUBQ SCH ×4 (00:57→18:12)
[2020-09-25] MEDS: *HR* Heparin 5,000 UNIT/ML VIAL SQ SCH ×2 (06:17→18:09)
[2020-09-25 06:30] LABS: Basophils # 0.1 K/mcL (0.0-0.2); Basophils % 0.7 %; Eosinophils # 0.3 K/mcL (0.0-0.6); Eosinophils % 3.8 %; Hematocrit 33.6 % (35.3-44.9); Hemoglobin 10.3 g/dL (11.5-15.4); Immature Granulocytes % 0.7 % (0-4); Lymphocytes # 1.1 K/mcL (0.6-4.6); Lymphocytes % 14.1 %; Mean Corpuscular HGB Conc 30.7 g/dL (31.6-35.5); Mean Corpuscular Hemoglobin 26.5 pg (28.0-33.3); Mean Corpuscular Volume 86.4 fL (83.0-100.0); Mean Platelet Volume 10.9 fL (9.4-12.4); Monocytes # 0.5 K/mcL (0.0-1.3); Neutrophils # 5.5 K/mcL (1.6-8.9); Platelet Count 208 K/mcL (140-400); Red Blood Count 3.89 M/mcL (3.82-4.97); Red Cell Distribution Width 17.3 % (11.5-14.5); Segmented Neutrophils % 73.7 %; White Blood Count 7.4 K/mcL (4.3-11.1)
[2020-09-25 06:57] LABS: BUN/Creatinine Ratio 23 (6-26); Blood Urea Nitrogen 24 mg/dL (6-20); Calcium 8.2 mg/dL (8.6-10.3); Carbon Dioxide 23 mEq/L (23-29); Chloride 105 mEq/L (98-107); Glucose 221 mg/dL (70-105); Osmolality,Calculated 295 (280-300); Potassium 3.7 mEq/L (3.5-5.1); Sodium 137 mEq/L (136-145); eGFR For African Americans > 60 (> 60); eGFR For Non-African Americans 55 (> 60)
[2020-09-25] MEDS: Aspirin 81 MG TAB.CHEW PO SCH (07:40)
[2020-09-25] MEDS: Sucralfate 1 GM TABLET PO SCH ×4 (07:40→23:18)
[2020-09-25] MEDS: lisinopriL 20 MG TABLET PO SCH (07:40)
[2020-09-25] MEDS: Metoprolol 100 MG TABLET PO SCH ×2 (07:41→20:02)
[2020-09-25] MEDS: Furosemide 40 MG TABLET PO SCH ×2 (07:41→18:10)
[2020-09-25] MEDS: allopurinoL 100 MG TABLET PO SCH (07:43)
[2020-09-25] MEDS ORDERED: Famotidine 20 MG TABLET PO SCH (09:00)
[2020-09-25] MEDS: Vancomycin 1,250 MG/262.5 ML IV.SOLN IVPB SCH ×2 (12:13→23:12)
[2020-09-25] MEDS ORDERED: Gabapentin 400 MG CAPSULE PO SCH (21:00)
[2020-09-25] MEDS ORDERED: Insulin DETEMIR 100 UNIT/ML X5UNITS SUBQ SCH (21:00)
[2020-09-26 04:27] LABS: Basophils % 0.5 %; Eosinophils # 0.3 K/mcL (0.0-0.6); Eosinophils % 3.6 %; Hemoglobin 10.5 g/dL (11.5-15.4); Immature Granulocytes % 1.2 % (0-4); Lymphocytes # 1.1 K/mcL (0.6-4.6); Lymphocytes % 14.5 %; Mean Corpuscular HGB Conc 30.9 g/dL (31.6-35.5); Mean Corpuscular Hemoglobin 26.9 pg (28.0-33.3); Mean Platelet Volume 10.9 fL (9.4-12.4); Monocytes # 0.5 K/mcL (0.0-1.3); Monocytes % 6.4 %; Neutrophils # 5.5 K/mcL (1.6-8.9); Nucleated Red Blood Cells 0.3 /100 WBC (0); Platelet Count 213 K/mcL (140-400); Red Blood Count 3.91 M/mcL (3.82-4.97); Red Cell Distribution Width 17.2 % (11.5-14.5); Segmented Neutrophils % 73.8 %; White Blood Count 7.5 K/mcL (4.3-11.1)
[2020-09-26 04:46] LABS: Calcium 7.9 mg/dL (8.6-10.3); Potassium 3.7 mEq/L (3.5-5.1)
[2020-09-26] MEDS: *HR* Heparin 5,000 UNIT/ML VIAL SQ SCH ×2 (05:06→17:40)
[2020-09-26] MEDS ORDERED: Gabapentin 400 MG CAPSULE PO SCH (09:00)
[2020-09-26] MEDS: Piperacillin/Tazobactam 3.375 GM in 0.9 % Sodium Chloride Mini Bag 100 ML IVPB SCH ×3 (09:21→23:23)
[2020-09-26] MEDS: Metoprolol 100 MG TABLET PO SCH ×2 (09:22→20:58)
[2020-09-26] MEDS: lisinopriL 20 MG TABLET PO SCH (09:22)
[2020-09-26] MEDS: Sucralfate 1 GM TABLET PO SCH ×4 (09:22→20:59)
[2020-09-26] MEDS: Aspirin 81 MG TAB.CHEW PO SCH (09:22)
[2020-09-26] MEDS: allopurinoL 100 MG TABLET PO SCH (09:22)
[2020-09-26] MEDS: Furosemide 40 MG TABLET PO SCH (09:23)
[2020-09-26] MEDS: Insulin LISPRO 300 UNITS/3 ML VIAL SUBQ SCH ×4 (09:24→21:00)
[2020-09-26] MEDS: *HR* HYDROcodone/Acet 5/325 mg TABLET PO PRN (20:58)
[2020-09-26] MEDS: Insulin DETEMIR 100 UNIT/ML X5UNITS SUBQ SCH (20:59)
[2020-09-27 01:54] LABS: Basophils % 0.5 %; Eosinophils # 0.4 K/mcL (0.0-0.6); Eosinophils % 4.5 %; Hematocrit 32.5 % (35.3-44.9); Hemoglobin 10.2 g/dL (11.5-15.4); Immature Granulocytes % 2.1 % (0-4); Lymphocytes # 1.4 K/mcL (0.6-4.6); Lymphocytes % 16.5 %; Mean Corpuscular HGB Conc 31.4 g/dL (31.6-35.5); Mean Corpuscular Hemoglobin 27.2 pg (28.0-33.3); Mean Corpuscular Volume 86.7 fL (83.0-100.0); Mean Platelet Volume 10.8 fL (9.4-12.4); Monocytes # 0.6 K/mcL (0.0-1.3); Neutrophils # 5.7 K/mcL (1.6-8.9); Nucleated Red Blood Cells 0.7 /100 WBC (0); Platelet Count 260 K/mcL (140-400); Red Blood Count 3.75 M/mcL (3.82-4.97); Red Cell Distribution Width 17.1 % (11.5-14.5); Segmented Neutrophils % 69.4 %; White Blood Count 8.3 K/mcL (4.3-11.1)
[2020-09-27 02:30] LABS: BUN/Creatinine Ratio 29 (6-26); Blood Urea Nitrogen 33 mg/dL (6-20); Calcium 8.2 mg/dL (8.6-10.3); Carbon Dioxide 23 mEq/L (23-29); Chloride 104 mEq/L (98-107); Glucose 200 mg/dL (70-105); Osmolality,Calculated 295 (280-300); Potassium 3.6 mEq/L (3.5-5.1); Sodium 136 mEq/L (136-145); eGFR For African Americans > 60 (> 60); eGFR For Non-African Americans 50 (> 60)
[2020-09-27] MEDS: *HR* Heparin 5,000 UNIT/ML VIAL SQ SCH ×2 (05:37→17:44)
[2020-09-27] MEDS: lisinopriL 20 MG TABLET PO SCH (09:36)
[2020-09-27] MEDS: Aspirin 81 MG TAB.CHEW PO SCH (09:36)
[2020-09-27] MEDS: Metoprolol 100 MG TABLET PO SCH ×2 (09:37→20:58)
[2020-09-27] MEDS: Sucralfate 1 GM TABLET PO SCH ×4 (09:37→22:01)
[2020-09-27] MEDS: allopurinoL 100 MG TABLET PO SCH (09:37)
[2020-09-27] MEDS: Piperacillin/Tazobactam 3.375 GM in 0.9 % Sodium Chloride Mini Bag 100 ML IVPB SCH (09:38)
[2020-09-27] MEDS: Insulin LISPRO 300 UNITS/3 ML VIAL SUBQ SCH ×3 (09:41→17:44)
[2020-09-27 11:10] LABS: Vancomycin,Random 11 mcg/mL
[2020-09-27] MEDS: levoFLOXacin 750 MG/150 ML 750 MG/150 ML BAG IVPB SCH (12:05)
[2020-09-27] MEDS: metroNIDAZOLE 500 MG TABLET PO SCH ×2 (15:55→20:58)
[2020-09-27] MEDS: Furosemide 40 MG TABLET PO SCH (15:55)
[2020-09-27] MEDS: Insulin DETEMIR 100 UNIT/ML X5UNITS SUBQ SCH (20:58)
[2020-09-27] MEDS: *HR* HYDROcodone/Acet 5/325 mg TABLET PO PRN (22:03)
[2020-09-28 01:44] LABS: Basophils # 0.1 K/mcL (0.0-0.2); Basophils % 0.8 %; Eosinophils # 0.3 K/mcL (0.0-0.6); Eosinophils % 3.5 %; Hematocrit 33.9 % (35.3-44.9); Hemoglobin 10.3 g/dL (11.5-15.4); Immature Granulocytes % 2.3 % (0-4); Lymphocytes # 1.7 K/mcL (0.6-4.6); Lymphocytes % 18.4 %; Mean Corpuscular HGB Conc 30.4 g/dL (31.6-35.5); Mean Corpuscular Hemoglobin 26.3 pg (28.0-33.3); Mean Corpuscular Volume 86.7 fL (83.0-100.0); Mean Platelet Volume 10.9 fL (9.4-12.4); Monocytes # 0.6 K/mcL (0.0-1.3); Monocytes % 6.2 %; Neutrophils # 6.3 K/mcL (1.6-8.9); Nucleated Red Blood Cells 0.7 /100 WBC (0); Platelet Count 306 K/mcL (140-400); Red Blood Count 3.91 M/mcL (3.82-4.97); Red Cell Distribution Width 17.3 % (11.5-14.5); Segmented Neutrophils % 68.8 %; White Blood Count 9.2 K/mcL (4.3-11.1)
[2020-09-28 01:53] LABS: BUN/Creatinine Ratio 28 (6-26); Blood Urea Nitrogen 32 mg/dL (6-20); Calcium 8.5 mg/dL (8.6-10.3); Carbon Dioxide 25 mEq/L (23-29); Chloride 103 mEq/L (98-107); Glucose 212 mg/dL (70-105); Osmolality,Calculated 295 (280-300); Potassium 3.9 mEq/L (3.5-5.1); Sodium 136 mEq/L (136-145); eGFR For African Americans > 60 (> 60); eGFR For Non-African Americans 50 (> 60)
[2020-09-28] MEDS: *HR* Heparin 5,000 UNIT/ML VIAL SQ SCH ×2 (05:21→17:53)
[2020-09-28] MEDS: levoFLOXacin 750 MG/150 ML 750 MG/150 ML BAG IVPB SCH (09:33)
[2020-09-28] MEDS: Furosemide 40 MG TABLET PO SCH ×2 (09:35→17:54)
[2020-09-28] MEDS: metroNIDAZOLE 500 MG TABLET PO SCH ×3 (09:35→20:31)
[2020-09-28] MEDS: Aspirin 81 MG TAB.CHEW PO SCH (09:35)
[2020-09-28] MEDS: lisinopriL 20 MG TABLET PO SCH (09:36)
[2020-09-28] MEDS: Sucralfate 1 GM TABLET PO SCH ×4 (09:36→21:46)
[2020-09-28] MEDS: allopurinoL 100 MG TABLET PO SCH (09:36)
[2020-09-28] MEDS: Metoprolol 100 MG TABLET PO SCH ×2 (09:36→20:30)
[2020-09-28] MEDS: Insulin LISPRO 300 UNITS/3 ML VIAL SUBQ SCH ×3 (09:37→17:51)
[2020-09-28] MEDS: Insulin DETEMIR 100 UNIT/ML X5UNITS SUBQ SCH (20:31)
[2020-09-29] MEDS: *HR* HYDROcodone/Acet 5/325 mg TABLET PO PRN (01:38)
[2020-09-29] MEDS: *HR* Heparin 5,000 UNIT/ML VIAL SQ SCH (05:09)
[2020-09-29 07:34] VITALS: BP 109/73
[2020-09-29] MEDS: metroNIDAZOLE 500 MG TABLET PO SCH (08:27)
[2020-09-29] MEDS: Metoprolol 100 MG TABLET PO SCH (08:27)
[2020-09-29] MEDS: allopurinoL 100 MG TABLET PO SCH (08:27)
[2020-09-29] MEDS: levoFLOXacin 750 MG/150 ML 750 MG/150 ML BAG IVPB SCH (08:27)
[2020-09-29] MEDS: Aspirin 81 MG TAB.CHEW PO SCH (08:28)
[2020-09-29] MEDS: Furosemide 40 MG TABLET PO SCH (08:28)
[2020-09-29] MEDS: Sucralfate 1 GM TABLET PO SCH (08:28)
[2020-09-29] MEDS: lisinopriL 20 MG TABLET PO SCH (08:28)
[2020-09-29] MEDS: Insulin LISPRO 300 UNITS/3 ML VIAL SUBQ SCH (08:29)
[2020-09-29] MEDS ORDERED: FLU Vac QV 20-21 (6Month+)/PF 0.5 ML SYRINGE IM ONE (09:33)
== END 2020-09-29 11:04 | disposition home or self-care (01) | DRG 854 ==
LOC: 3ANU → SUATTDRO 19:19
PROVIDERS: ADMIT Internal Medicine; ATTEND Student in an Organized Health Care Education/Training Program

== ENCOUNTER 2021-04-08 14:30 | Inpatient (IN) ==
[2021-04-08] MEDS ORDERED: Isovue-370 500 ML BOTTLE IVP ONE (15:44)
[2021-04-08] MEDS ORDERED: Piperacillin/Tazobactam 3.375 GM in Water for inj. (sterile) 20 ML IVP ONE (16:00)
[2021-04-08] MEDS ORDERED: Vancomycin 1,750 MG/517.5 ML IV.SOLN IVPB ONE (16:00)
[2021-04-08 16:46] LABS: Basophils % 0.3 %; Eosinophils # 0.1 K/mcL (0.0-0.6); Eosinophils % 1.1 %; Hematocrit 46.8 % (35.3-44.9); Hemoglobin 14.6 g/dL (11.5-15.4); Immature Granulocytes % 1.3 % (0-4); Lymphocytes # 0.9 K/mcL (0.6-4.6); Lymphocytes % 7.9 %; Mean Corpuscular HGB Conc 31.2 g/dL (31.6-35.5); Mean Corpuscular Hemoglobin 26.4 pg (28.0-33.3); Mean Corpuscular Volume 84.5 fL (83.0-100.0); Mean Platelet Volume 10.9 fL (9.4-12.4); Monocytes # 0.7 K/mcL (0.0-1.3); Monocytes % 6.3 %; Neutrophils # 9.7 K/mcL (1.6-8.9); Platelet Count 231 K/mcL (140-400); Red Blood Count 5.54 M/mcL (3.82-4.97); Red Cell Distribution Width 18.6 % (11.5-14.5); Segmented Neutrophils % 83.1 %; White Blood Count 11.7 K/mcL (4.3-11.1)
[2021-04-08] MEDS ORDERED: 0.9 % Sodium Chloride 500 ML IVC ONE (17:23)
[2021-04-08] MEDS ORDERED: Acetaminophen IV 1,000 MG/100 ML BAG IVPB ONE (17:23)
[2021-04-08 17:52] LABS: Alanine Aminotransferase 15 Units/L (7-52); Albumin 3.8 g/dL (3.5-5.7); Alkaline Phosphatase 81 Units/L (34-104); Aspartate Amino Transferase 14 Units/L (13-39); BUN/Creatinine Ratio 24 (6-26); Bilirubin,Total 1.6 mg/dL (0.3-1.0); Blood Urea Nitrogen 22 mg/dL (6-20); C-Reactive Protein 167 mg/L (Less than 10); Calcium 9.3 mg/dL (8.6-10.3); Carbon Dioxide 21 mEq/L (23-29); Chloride 101 mEq/L (98-107); Globulin 3.8 g/dL (2.4-3.5); Glucose 271 mg/dL (70-105); Osmolality,Calculated 283 (280-300); Potassium 4.2 mEq/L (3.5-5.1); Sodium 130 mEq/L (136-145); Total Protein 7.6 g/dL (6.4-8.9); eGFR For African Americans > 60 (> 60); eGFR For Non-African Americans > 60 (> 60)
[2021-04-08] MEDS ORDERED: Melatonin 3 MG TABLET PO PRN (18:00)
[2021-04-08] MEDS ORDERED: 0.9 % Sodium Chloride 1,000 ML IVC SCH (18:00)
[2021-04-08] MEDS ORDERED: Ondansetron 4 MG/2 ML VIAL IVP PRN (18:00)
[2021-04-08] MEDS ORDERED: Naloxone 0.4 MG/ML INJ IVP PRN (18:00)
[2021-04-08] MEDS ORDERED: Acetaminophen 325 MG TABLET PO PRN (18:00)
[2021-04-08] MEDS ORDERED: D5% in Water 1,000 ML IVC PRN (18:03)
[2021-04-08] MEDS ORDERED: Dextrose Gel 15 GM/37.5 ML TUBE PO PRN ×2 (18:03)
[2021-04-08] MEDS ORDERED: *HR* Dextrose 50 % in Water (Syg) 50 ML SYRINGE IVP PRN (18:03)
[2021-04-08 18:40] LABS: Adenovirus Not Detected (Not Detect); Bordetella Pertussis Not Detected (Not Detect); Chlamydophila pneumoniae Not Detected (Not Detect); Coronavirus 229E Not Detected (Not Detect); Coronavirus HKU1 Not Detected (Not Detect); Coronavirus NL63 Not Detected (Not Detect); Coronavirus OC43 Not Detected (Not Detect); Human Metapneumovirus Not Detected (Not Detect); Human Rhinovirus/Enterovirus DETECTED (Not Detect); Influenza A Subtype 2009 H1 Not Detected (Not Detect); Influenza B Not Detected (Not Detect); Mycoplasma pneumoniae Not Detected (Not Detect); Parainfluenza Virus 1 Not Detected (Not Detect); Parainfluenza Virus 2 Not Detected (Not Detect); Parainfluenza Virus 3 Not Detected (Not Detect); Parainfluenza Virus 4 Not Detected (Not Detect); Respiratory Syncytial Virus Not Detected (Not Detect); SARS-CoV-2 Not Detected (Not Detect)
[2021-04-08] MEDS: Insulin LISPRO 300 UNITS/3 ML VIAL SUBQ SCH (22:29)
[2021-04-08] MEDS: Clindamycin 600 MG/50 ML 600 MG/50 ML IV.SOLN IVPB SCH (22:29)
[2021-04-09] MEDS ORDERED: Piperacillin/Tazobactam 3.375 GM in 0.9 % Sodium Chloride Mini Bag 100 ML IVPB SCH
[2021-04-09 02:08] LABS: Bilirubin,Urine Negative (Negative); Blood,Urine Moderate (Negative); Clarity,Urine Clear (Clear); Color,Urine Light-Yellow (Yellow); Glucose,Urine (UA) >=1000 mg/dL (Normal); Ketones,Urine Negative (Negative); Leukocyte Esterase,Urine Negative (Negative); Mucus,Urine Few per lpf (None-Few); Nitrite,Urine Negative (Negative); Protein,Urine 30 mg/dL (Neg-Trace); Specific Gravity,Urine > 1.030 (1.010-1.025); Squamous Epithelial Cell,Urine Few per hpf (None-Few); Urobilinogen,Urine Normal (Normal); WBC,Urine 0-3 per hpf (0-3)
[2021-04-09] MEDS: Piperacillin/Tazobactam 3.375 GM in 0.9 % Sodium Chloride Mini Bag 100 ML IVPB SCH ×3 (02:51→18:19)
[2021-04-09] MEDS ORDERED: Vancomycin 1,750 MG in 0.9 % Sodium Chloride 250 ML IVPB SCH (05:30)
[2021-04-09] MEDS: Clindamycin 600 MG/50 ML 600 MG/50 ML IV.SOLN IVPB SCH (05:34)
[2021-04-09] MEDS: Vancomycin 1,250 MG/262.5 ML IV.SOLN IVPB SCH ×2 (06:08→17:02)
[2021-04-09] MEDS ORDERED: *HR* Propofol 200 MG/20 ML VIAL IVP ONE (07:14)
[2021-04-09] MEDS ORDERED: *HR* FentaNYL (PF) 100 MCG/2 ML VIAL ONE (07:14)
[2021-04-09] MEDS ORDERED: *HR* Midazolam HCl 2 MG/2 ML VIAL ONE (07:14)
[2021-04-09] MEDS ORDERED: Lidocaine -MPF 2% 5 ML VIAL ONE (07:17)
[2021-04-09] MEDS ORDERED: Bupivacaine/Clonidine Syringe 20 ML, Syringe LUER-LOK 1 EACH TP ONE (07:30)
[2021-04-09] MEDS: Insulin LISPRO 300 UNITS/3 ML VIAL SUBQ SCH ×4 (07:39→19:41)
[2021-04-09 07:53] LABS: Basophils % 0.5 %; Eosinophils # 0.3 K/mcL (0.0-0.6); Eosinophils % 3.1 %; Hematocrit 42.2 % (35.3-44.9); Hemoglobin 13.4 g/dL (11.5-15.4); Immature Granulocytes % 1.4 % (0-4); Lymphocytes # 0.9 K/mcL (0.6-4.6); Lymphocytes % 10.9 %; Mean Corpuscular HGB Conc 31.8 g/dL (31.6-35.5); Mean Corpuscular Hemoglobin 26.6 pg (28.0-33.3); Mean Corpuscular Volume 83.7 fL (83.0-100.0); Mean Platelet Volume 10.9 fL (9.4-12.4); Monocytes # 0.6 K/mcL (0.0-1.3); Monocytes % 7.2 %; Neutrophils # 6.4 K/mcL (1.6-8.9); Platelet Count 207 K/mcL (140-400); Red Blood Count 5.04 M/mcL (3.82-4.97); Red Cell Distribution Width 18.3 % (11.5-14.5); Segmented Neutrophils % 76.9 %; White Blood Count 8.3 K/mcL (4.3-11.1)
[2021-04-09 07:59] LABS: INR 1.3
[2021-04-09 08:15] LABS: Alanine Aminotransferase 15 Units/L (7-52); Albumin 3.2 g/dL (3.5-5.7); Albumin/Globulin Ratio 0.8 (1.1-2.2); Alkaline Phosphatase 76 Units/L (34-104); Aspartate Amino Transferase 10 Units/L (13-39); BUN/Creatinine Ratio 23 (6-26); Bilirubin,Total 1.5 mg/dL (0.3-1.0); Blood Urea Nitrogen 19 mg/dL (6-20); Calcium 8.7 mg/dL (8.6-10.3); Carbon Dioxide 21 mEq/L (23-29); Chloride 104 mEq/L (98-107); Globulin 3.8 g/dL (2.4-3.5); Glucose 230 mg/dL (70-105); Osmolality,Calculated 286 (280-300); Sodium 133 mEq/L (136-145); eGFR For African Americans > 60 (> 60); eGFR For Non-African Americans > 60 (> 60)
[2021-04-09 08:58] LABS: Magnesium 1.9 mg/dL (1.6-2.6)
[2021-04-09 10:46] LABS: Estimated Average Glucose 263 mg/dl; Hemoglobin A1C 10.8 %
[2021-04-09] MEDS ORDERED: Metoprolol 100 MG TABLET PO ONE (11:43)
[2021-04-09] MEDS ORDERED: *HR* Metoprolol 5 MG/5 ML VIAL IVP ONE (12:24)
[2021-04-09] MEDS: traZODone 50 MG TABLET PO SCH (23:24)
[2021-04-09] MEDS: Metoprolol 100 MG TABLET PO SCH (23:24)
[2021-04-09] MEDS: Gabapentin 400 MG CAPSULE PO SCH (23:24)
[2021-04-10] MEDS: Piperacillin/Tazobactam 3.375 GM in 0.9 % Sodium Chloride Mini Bag 100 ML IVPB SCH ×3 (03:01→18:47)
[2021-04-10 07:51] LABS: Basophils % 0.5 %; Eosinophils # 0.3 K/mcL (0.0-0.6); Eosinophils % 4.9 %; Hematocrit 42.3 % (35.3-44.9); Hemoglobin 13.2 g/dL (11.5-15.4); Immature Granulocytes % 2.3 % (0-4); Lymphocytes # 0.8 K/mcL (0.6-4.6); Lymphocytes % 13.3 %; Mean Corpuscular HGB Conc 31.2 g/dL (31.6-35.5); Mean Corpuscular Hemoglobin 26.7 pg (28.0-33.3); Mean Corpuscular Volume 85.5 fL (83.0-100.0); Mean Platelet Volume 10.7 fL (9.4-12.4); Monocytes # 0.6 K/mcL (0.0-1.3); Monocytes % 9.9 %; Platelet Count 193 K/mcL (140-400); Red Blood Count 4.95 M/mcL (3.82-4.97); Red Cell Distribution Width 18.3 % (11.5-14.5); Segmented Neutrophils % 69.1 %; White Blood Count 5.8 K/mcL (4.3-11.1)
[2021-04-10 08:18] LABS: BUN/Creatinine Ratio 23 (6-26); Blood Urea Nitrogen 22 mg/dL (6-20); Calcium 8.6 mg/dL (8.6-10.3); Carbon Dioxide 21 mEq/L (23-29); Chloride 106 mEq/L (98-107); Glucose 197 mg/dL (70-105); Osmolality,Calculated 287 (280-300); Sodium 134 mEq/L (136-145); eGFR For African Americans > 60 (> 60); eGFR For Non-African Americans > 60 (> 60)
[2021-04-10] MEDS: Famotidine 20 MG TABLET PO SCH (08:22)
[2021-04-10] MEDS: Metoprolol 100 MG TABLET PO SCH ×2 (08:22→21:32)
[2021-04-10] MEDS: Gabapentin 400 MG CAPSULE PO SCH ×3 (08:22→21:31)
[2021-04-10] MEDS: Insulin LISPRO 300 UNITS/3 ML VIAL SUBQ SCH ×4 (08:23→21:36)
[2021-04-10] MEDS: Vancomycin 1,250 MG/262.5 ML IV.SOLN IVPB SCH ×3 (09:16→18:47)
[2021-04-10] MEDS ORDERED: traZODone 50 MG TABLET PO SCH (21:00)
[2021-04-10] MEDS ORDERED: Gabapentin 400 MG CAPSULE PO SCH (21:00)
[2021-04-10] MEDS ORDERED: ICOSAPENT ETHYL 1 GM PO SCH (21:00)
[2021-04-10] MEDS: traZODone 50 MG TABLET PO SCH (21:32)
[2021-04-10] MEDS: Furosemide 40 MG TABLET PO SCH (21:34)
[2021-04-10] MEDS: Benzonatate 100 MG CAPSULE PO PRN (22:17)
[2021-04-11 03:01] LABS: BUN/Creatinine Ratio 30 (6-26); Blood Urea Nitrogen 29 mg/dL (6-20); Calcium 8.6 mg/dL (8.6-10.3); Carbon Dioxide 18 mEq/L (23-29); Chloride 108 mEq/L (98-107); Glucose 231 mg/dL (70-105); Osmolality,Calculated 291 (280-300); Potassium 4.1 mEq/L (3.5-5.1); Sodium 134 mEq/L (136-145); eGFR For African Americans > 60 (> 60); eGFR For Non-African Americans > 60 (> 60)
[2021-04-11 04:01] LABS: Basophils % 0.6 %; Eosinophils # 0.3 K/mcL (0.0-0.6); Eosinophils % 5.5 %; Hematocrit 41.1 % (35.3-44.9); Hemoglobin 12.6 g/dL (11.5-15.4); Immature Granulocytes % 3.4 % (0-4); Lymphocytes # 0.8 K/mcL (0.6-4.6); Mean Corpuscular HGB Conc 30.7 g/dL (31.6-35.5); Mean Corpuscular Hemoglobin 26.8 pg (28.0-33.3); Mean Corpuscular Volume 87.3 fL (83.0-100.0); Mean Platelet Volume 10.8 fL (9.4-12.4); Monocytes # 0.5 K/mcL (0.0-1.3); Monocytes % 10.2 %; Platelet Count 207 K/mcL (140-400); Red Blood Count 4.71 M/mcL (3.82-4.97); Red Cell Distribution Width 18.2 % (11.5-14.5); Segmented Neutrophils % 64.3 %; White Blood Count 4.7 K/mcL (4.3-11.1)
[2021-04-11] MEDS: Piperacillin/Tazobactam 3.375 GM in 0.9 % Sodium Chloride Mini Bag 100 ML IVPB SCH (04:19)
[2021-04-11] MEDS: Vancomycin 1,250 MG/262.5 ML IV.SOLN IVPB SCH (04:22)
[2021-04-11] MEDS: Gabapentin 400 MG CAPSULE PO SCH ×3 (08:04→20:09)
[2021-04-11] MEDS: Aspirin 81 MG TAB.CHEW PO SCH (08:04)
[2021-04-11] MEDS: allopurinoL 100 MG TABLET PO SCH (08:05)
[2021-04-11] MEDS: Famotidine 20 MG TABLET PO SCH (08:05)
[2021-04-11] MEDS: lisinopriL 20 MG TABLET PO SCH (08:05)
[2021-04-11] MEDS: *HR* LORazepam 0.5 MG TABLET PO SCH (08:05)
[2021-04-11] MEDS: Metoprolol 100 MG TABLET PO SCH ×2 (08:05→20:09)
[2021-04-11] MEDS: Furosemide 40 MG TABLET PO SCH ×2 (08:05→17:19)
[2021-04-11] MEDS: Spironolactone 25 MG TABLET PO SCH (08:06)
[2021-04-11] MEDS ORDERED: Lidocaine -MPF 2% 5 ML VIAL ONE (10:30)
[2021-04-11] MEDS ORDERED: *HR* FentaNYL (PF) 100 MCG/2 ML VIAL IVP PRN (11:00)
[2021-04-11] MEDS: Insulin LISPRO 300 UNITS/3 ML VIAL SUBQ SCH ×4 (11:15→20:09)
[2021-04-11] MEDS ORDERED: *HR* HYDROmorphone PF 0.5 MG/0.5 ML SYRINGE IVP PRN (12:00)
[2021-04-11] MEDS ORDERED: Ondansetron 4 MG/2 ML VIAL IVP PRN (12:00)
[2021-04-11] MEDS: cefTRIAXone 2,000 MG in 0.9 % Sodium Chloride Mini Bag 100 ML IVPB SCH (13:42)
[2021-04-11] MEDS: traZODone 50 MG TABLET PO SCH (20:09)
[2021-04-11] MEDS: Benzonatate 100 MG CAPSULE PO PRN (20:09)
[2021-04-12 07:28] VITALS: PULSE 66; O2SAT 98
[2021-04-12] MEDS: cefTRIAXone 2,000 MG in 0.9 % Sodium Chloride Mini Bag 100 ML IVPB SCH (08:38)
[2021-04-12] MEDS: Aspirin 81 MG TAB.CHEW PO SCH (08:39)
[2021-04-12] MEDS: Metoprolol 100 MG TABLET PO SCH (08:39)
[2021-04-12] MEDS: Famotidine 20 MG TABLET PO SCH (08:40)
[2021-04-12] MEDS: Spironolactone 25 MG TABLET PO SCH (08:40)
[2021-04-12] MEDS: Furosemide 40 MG TABLET PO SCH (08:40)
[2021-04-12] MEDS: Gabapentin 400 MG CAPSULE PO SCH ×2 (08:40→13:08)
[2021-04-12] MEDS: *HR* LORazepam 0.5 MG TABLET PO SCH (08:40)
[2021-04-12] MEDS: lisinopriL 20 MG TABLET PO SCH (08:41)
[2021-04-12] MEDS: allopurinoL 100 MG TABLET PO SCH (08:41)
[2021-04-12] MEDS: Insulin LISPRO 300 UNITS/3 ML VIAL SUBQ SCH ×2 (08:44→13:08)
[2021-04-12 11:23] VITALS: BP 114/73; TEMP 97.6
[2021-04-12 12:32] LABS: Basophils % 0.8 %; Eosinophils # 0.3 K/mcL (0.0-0.6); Eosinophils % 5.4 %; Hematocrit 45.4 % (35.3-44.9); Lymphocytes # 0.9 K/mcL (0.6-4.6); Lymphocytes % 18.3 %; Mean Corpuscular HGB Conc 30.8 g/dL (31.6-35.5); Mean Corpuscular Hemoglobin 26.2 pg (28.0-33.3); Mean Platelet Volume 10.9 fL (9.4-12.4); Monocytes # 0.4 K/mcL (0.0-1.3); Monocytes % 7.9 %; Neutrophils # 3.3 K/mcL (1.6-8.9); Platelet Count 195 K/mcL (140-400); Red Blood Count 5.34 M/mcL (3.82-4.97); Red Cell Distribution Width 18.7 % (11.5-14.5); Segmented Neutrophils % 64.6 %
[2021-04-12 12:53] LABS: BUN/Creatinine Ratio 28 (6-26); Blood Urea Nitrogen 30 mg/dL (6-20); Calcium 8.9 mg/dL (8.6-10.3); Carbon Dioxide 21 mEq/L (23-29); Chloride 106 mEq/L (98-107); Glucose 267 mg/dL (70-105); Osmolality,Calculated 300 (280-300); Phosphorous 3.7 mg/dL (2.7-4.5); Sodium 137 mEq/L (136-145); eGFR For African Americans > 60 (> 60); eGFR For Non-African Americans 53 (> 60)
== END 2021-04-12 14:00 | disposition home health service (06) | DRG 720 ==
LOC: EMEROOARM 14:30 → 4WAOSI 14:30 → SUATTDRO 17:51 → 4WAOSI 20:41
PROVIDERS: ADMIT Student in an Organized Health Care Education/Training Program; ATTEND Family Medicine